=== PATIENT | male | born 1970 | race African-American/Black ===

== ENCOUNTER 2016-08-10 00:50 | Observation (INO) ==
[2016-08-10] MEDS ORDERED: Haloperidol Lactate 5 MG/ML VIAL IM ONE (01:06)
[2016-08-10] MEDS ORDERED: *HR* LORazepam 2 MG/ML VIAL IM ONE (01:06)
--- NOTE | 2016-08-10 01:15 | Emergency Department Note ---
Disposition Clinical Impression: Suicidal ideation Disposition: Still a Patient Condition: Fair Referrals: Unassigned,Provider [Non-Partnered Physician] - Forms: ED Satisfaction Letter Time of Disposition: 06:15 Psych HPI - General Chief Complaint: ED Psychiatric Symptoms Stated Complaint: psych eval Time Seen by Provider: 08/10/16 01:05 Source: patient, EMS Mode of arrival: EMS Limitations: altered mental status - History of Present Illness HPI Narrative: 46-year-old male is brought to the emergency department by EMS for complaint of a "mental breakdown". It is unknown at this time who called for EMS transport to the emergency department. Upon the patient's arrival, he is combative, and altered. Per EMS report, he admitted to OF suicidal ideation while in transport to the ED. At the time my exam, the patient remains somewhat combative, and not cooperative. I cannot elicit a definitive yes or no when asking the in the thoughts of suicidal or homicidal ideations question. The patient does complain of a severe headache. The patient denies any recent trauma or injury that could account for this. Pt complaint: altered mental status Onset (ago): unknown Associated Psychiatric Symptoms: racing thoughts Associated symptoms: Reports: headache Traumatic symptoms: denies traumatic injury Treatments prior to arrival: none - Related Data Home Medications Medication Instructions Recorded Confirmed Gabapentin [Neurontin] 07/21/16 Tramadol HCl 07/21/16 Previous Rx's Medication Instructions Recorded MethylPREDNISolone [Medrol] 4 mg PO TAPER #21 tablet 07/04/16 PredniSONE [Prednisone] 40 mg PO DAILY #10 tablet 07/21/16 Allergies Allergy/AdvReac Type Severity Reaction Status Date / Time ibuprofen AdvReac See Verified 05/23/16 19:57 Comments Limitations: ROS unobtainable due to patients medical condition (Review of systems limited by patient's altered mental status) Neurological: Reports: as per HPI, headache Psychiatric: Reports: as per HPI Past Medical History - Past Medical History Source: unable to obtain (Unable to obtain due to altered mental status) Medical history: Reports: other Surgical history: Reports: orthopedic, other Psychiatric history: Reports: anxiety, depression, panic disorder - Social History Smoking Status: Current every day smoker Smokeless Tobacco Status: No Alcohol use: Reports: none Drug use: Reports: marijuana Physical Exam - General Limitations: no limitations General appearance: alert - Head Head exam: atraumatic, normocephalic, normal inspection - Eye Eye exam: Present: normal appearance, PERRL, EOMI. Absent: nystagmus - ENT ENT exam: mucous membranes moist - Neck Neck exam: Present: normal inspection, full ROM, trachea midline - Chest Chest inspection: Present: normal inspection, symmetric chest wall rise - Respiratory Respiratory exam: Present: normal lung sounds bilaterally. Absent: respiratory distress, wheezes, stridor, accessory muscle use, prolonged expiratory phase - Cardiovascular Cardiovascular exam: Present: regular rate, normal rhythm, normal heart sounds - Abdominal Exam Abdominal exam: Present: soft, Non-Tender, normal bowel sounds. Absent: tenderness, distention, guarding, rebound, rigidity - Extremities Exam Extremities exam: Present: normal inspection, full ROM. Absent: tenderness, pedal edema - Neurological Exam Neurological exam: Present: alert, oriented X3 - Psychiatric Psychiatric exam: Present: agitated - Skin Skin exam: Present: warm, dry, intact, normal color. Absent: rash, cyanosis, diaphoresis, erythema, pallor, mottled Course - Reevaluation(s) Reevaluation #1: Patient is resting in bed comfortably at this time. Patient is cooperative. Patient is no longer combative at this point. Due to the patient's EtOH level, we will have to wait until 0700 for a repeat EtOH draw. Time: 03:10 Vital Signs Temperature 99.1 F 08/10/16 00:53 Pulse Rate 100 08/10/16 00:53 Respiratory Rate 18 08/10/16 00:53 Blood Pressure 139/78 08/10/16 00:53 O2 Sat by Pulse Oximetry 93 L 08/10/16 00:53 Temperature 99.1 F 08/10/16 00:53 Pulse Rate 99 08/10/16 05:26 Respiratory Rate 16 08/10/16 05:26 Blood Pressure 167/80 08/10/16 05:26 O2 Sat by Pulse Oximetry 91 L 08/10/16 05:26 Oxygen Delivery Oxygen Delivery Room Air Psych - Lab Data Result diagrams: 08/10/16 01:14 08/10/16 01:14 Lab Results 08/10/16 08/10/16 08/10/16 Range/Units 01:14 01:14 02:10 WBC 12.7 H (4.3-11.1) K/mcL RBC 4.75 (4.19-5.50) M/mcL Hgb 14.4 (12.9-16.9) g/dL Hct 43.1 (37.5-50.1) % MCV 90.7 (83.0-100.0) fL MCH 30.3 (28.0-33.3) pg MCHC 33.4 (31.6-35.5) g/dL RDW 13.2 (11.5-14.5) % Plt Count 230 (140-400) K/mcL MPV 9.6 (9.4-12.4) fL Immature Gran % 0.6 (0-4) % Seg Neutrophils % 75.8 % Lymphocytes % 13.5 % Monocytes % 9.6 % Eosinophils % 0.3 % Basophils % 0.2 % Neutrophils # 9.6 H (1.6-8.9) K/mcL Lymphocytes # 1.7 (0.6-4.6) K/mcL Monocytes # 1.2 (0.0-1.3) K/mcL Eosinophils # 0.0 (0.0-0.6) K/mcL Basophils # 0.0 (0.0-0.2) K/mcL Sodium 143 (136-145) mEq/L Potassium 3.9 (3.5-4.5) mEq/L Chloride 109 (98-109) mEq/L Carbon Dioxide 23 (19-29) mEq/L BUN 6 L (8-26) mg/dL Creatinine 0.95 (0.72-1.25) mg/dL Est GFR ( Amer) > 60 (> 60) Est GFR (Non-Af Amer) > 60 (> 60) BUN/Creatinine Ratio 6 (6-26) Glucose 98 (70-99) mg/dL Calculated Osmolality 294 (280-300) Calcium 8.9 (8.6-10.8) mg/dL TSH 0.227 L (0.350-4.840) mcIU/mL Urine Color Yellow (Yellow) Urine Clarity Clear (Clear) Urine pH 6.0 (5.0-8.0) pH Units Ur Specific [place] 1.015 (1.010-1.025) Urine Protein Negative (Neg-Trace) mg/dL Urine Glucose (UA) Normal (Normal) mg/dL Urine Ketones Negative (Negative) mg/dL Urine Blood Small H (Negative) Urine Nitrite Negative (Negative) Urine Bilirubin Negative (Negative) Urine Urobilinogen Normal (Normal) mg/dL Ur Leukocyte Esterase Negative (Negative) Urine Microscopic RBC 5-15 H (0-3) per hpf Urine Microscopic WBC 0-3 (0-3) per hpf Ur Squamous Epith Cells Many H (None-Few) per lpf Urine Bacteria None Seen (None-Few) per hpf Hyaline Casts None Seen (None-Few) per lpf Salicylates < 5.0 L (15-30) mg/dL Urine Opiates Screen (Vbokwq=775) ng/mL Acetaminophen < 1.0 L (10-30) mcg/mL Ur Barbiturates Screen (Oubtlw=255) ng/mL Ur Phencyclidine Scrn (Cutoff=25) ng/mL Ur Amphetamines Screen (Ucityl=0884) ng/mL U Benzodiazepines Scrn (Lckizm=737) ng/mL Urine Cocaine Screen (Cutoff= 300) ng/mL U Marijuana (THC) Screen (Cutoff = 50) ng/mL Ethyl Alcohol 213 H (0-10) mg/dL 08/10/16 Range/Units 02:10 WBC (4.3-11.1) K/mcL RBC (4.19-5.50) M/mcL Hgb (12.9-16.9) g/dL Hct (37.5-50.1) % MCV (83.0-100.0) fL MCH (28.0-33.3) pg MCHC (31.6-35.5) g/dL RDW (11.5-14.5) % Plt Count (140-400) K/mcL MPV (9.4-12.4) fL Immature Gran % (0-4) % Seg Neutrophils % % Lymphocytes % % Monocytes % % Eosinophils % % Basophils % % Neutrophils # (1.6-8.9) K/mcL Lymphocytes # (0.6-4.6) K/mcL Monocytes # (0.0-1.3) K/mcL Eosinophils # (0.0-0.6) K/mcL Basophils # (0.0-0.2) K/mcL Sodium (136-145) mEq/L Potassium (3.5-4.5) mEq/L Chloride (98-109) mEq/L Carbon Dioxide (19-29) mEq/L BUN (8-26) mg/dL Creatinine (0.72-1.25) mg/dL Est GFR ( Amer) (> 60) Est GFR (Non-Af Amer) (> 60) BUN/Creatinine Ratio (6-26) Glucose (70-99) mg/dL Calculated Osmolality (280-300) Calcium (8.6-10.8) mg/dL TSH (0.350-4.840) mcIU/mL Urine Color (Yellow) Urine Clarity (Clear) Urine pH (5.0-8.0) pH Units Ur Specific [place] (1.010-1.025) Urine Protein (Neg-Trace) mg/dL Urine Glucose (UA) (Normal) mg/dL Urine Ketones (Negative) mg/dL Urine Blood (Negative) Urine Nitrite (Negative) Urine Bilirubin (Negative) Urine Urobilinogen (Normal) mg/dL Ur Leukocyte Esterase (Negative) Urine Microscopic RBC (0-3) per hpf Urine Microscopic WBC (0-3) per hpf Ur Squamous Epith Cells (None-Few) per lpf Urine Bacteria (None-Few) per hpf Hyaline Casts (None-Few) per lpf Salicylates (15-30) mg/dL Urine Opiates Screen Negative (Ifbxpq=839) ng/mL Acetaminophen (10-30) mcg/mL Ur Barbiturates Screen Negative (Tkbamf=087) ng/mL Ur Phencyclidine Scrn Negative (Cutoff=25) ng/mL Ur Amphetamines Screen Negative (Tclwmr=4609) ng/mL U Benzodiazepines Scrn Positive H (Gvypgd=407) ng/mL Urine Cocaine Screen Positive H (Cutoff= 300) ng/mL U Marijuana (THC) Screen Positive H (Cutoff = 50) ng/mL Ethyl Alcohol (0-10) mg/dL Psychiatric Medical Clearance - Medical Clearance Checklist Medical History: No Social History Section defined Current Vitals: Last Vital Signs Temp 99.1 F 08/10/16 00:53 Pulse 99 08/10/16 05:26 Resp 16 08/10/16 05:26 BP 167/80 08/10/16 05:26 Pulse Ox 91 L 08/10/16 05:26 Psychiatric Lab Panel: Drug Levels and Toxicity 08/10/16 08/10/16 01:14 02:10 Urine Opiates Screen Negative Acetaminophen < 1.0 L Ur Barbiturates Screen Negative Ur Phencyclidine Scrn Negative Ur Amphetamines Screen Negative U Benzodiazepines Scrn Positive H Urine Cocaine Screen Positive H U Marijuana (THC) Screen Positive H Ethyl Alcohol 213 H Abnormal Labs: Abnormal lab results WBC 12.7 K/mcL (4.3-11.1) H 08/10/16 01:14 Neutrophils # 9.6 K/mcL (1.6-8.9) H 08/10/16 01:14 BUN 6 mg/dL (8-26) L 08/10/16 01:14 TSH 0.227 mcIU/mL (0.350-4.840) L 08/10/16 01:14 Urine Blood Small (Negative) H 08/10/16 02:10 Urine Microscopic RBC 5-15 per hpf (0-3) H 08/10/16 02:10 Ur Squamous Epith Cells Many per lpf (None-Few) H 08/10/16 02:10 Salicylates < 5.0 mg/dL (15-30) L 08/10/16 01:14 Acetaminophen < 1.0 mcg/mL (10-30) L 08/10/16 01:14 U Benzodiazepines Scrn Positive ng/mL (Smdggx=740) H 08/10/16 02:10 Urine Cocaine Screen Positive ng/mL (Cutoff= 300) H 08/10/16 02:10 U Marijuana (THC) Screen Positive ng/mL (Cutoff = 50) H 08/10/16 02:10 Ethyl Alcohol 213 mg/dL (0-10) H 08/10/16 01:14 Statement of Medical Clearance: I have evaluated the patient, reviewed diagnostic information, and certify that the patient's medical condition is sufficiently stable that transfer to the psychiatric unit does not pose a significant risk of deterioration. S.B.A.R. - S.B.A.R. Transition of Care: Case has been discussed with Jerica Schwartz PA-C. Care of this patient will be transferred to [place] d/t shift change. Situation: Demographics, MOA Background: Presenting Complaint, Relevant PMH, Meds, & Allergies Assessment: Vital Signs, Course and respsone to treatment, Exam Concerns, Patient/Family Expectation, Pertinant Lab Results, Outstanding Labs Recommendation: Barrier(s) to disposition, Recommendation based on pending studies, treatments, or consults S.B.A.R. Report Given to: KATHI Mcdonald Repor Time: 06:14
[2016-08-10 01:22] LABS: Basophils % 0.2 %; Eosinophils % 0.3 %; Hematocrit 43.1 % (37.5-50.1); Hemoglobin 14.4 g/dL (12.9-16.9); Immature Granulocytes % 0.6 % (0-4); Lymphocytes # 1.7 K/mcL (0.6-4.6); Lymphocytes % 13.5 %; Mean Corpuscular HGB Conc 33.4 g/dL (31.6-35.5); Mean Corpuscular Hemoglobin 30.3 pg (28.0-33.3); Mean Corpuscular Volume 90.7 fL (83.0-100.0); Mean Platelet Volume 9.6 fL (9.4-12.4); Monocytes # 1.2 K/mcL (0.0-1.3); Monocytes % 9.6 %; Neutrophils # 9.6 K/mcL (1.6-8.9); Platelet Count 230 K/mcL (140-400); Red Blood Count 4.75 M/mcL (4.19-5.50); Red Cell Distribution Width 13.2 % (11.5-14.5); Segmented Neutrophils % 75.8 %
[2016-08-10 01:50] LABS: Acetaminophen < 1.0 mcg/mL (10-30); BUN/Creatinine Ratio 6 (6-26); Blood Urea Nitrogen 6 mg/dL (8-26); Calcium 8.9 mg/dL (8.6-10.8); Carbon Dioxide 23 mEq/L (19-29); Chloride 109 mEq/L (98-109); Ethanol 213 mg/dL (0-10); Glucose 98 mg/dL (70-99); Osmolality,Calculated 294 (280-300); Potassium 3.9 mEq/L (3.5-4.5); Salicylate < 5.0 mg/dL (15-30); Sodium 143 mEq/L (136-145); eGFR For African Americans > 60 (> 60); eGFR For Non-African Americans > 60 (> 60)
[2016-08-10 02:09] LABS: Thyroid Stimulating Hormone 0.227 mcIU/mL (0.350-4.840)
[2016-08-10 03:02] LABS: Bilirubin,Urine Negative (Negative); Blood,Urine Small (Negative); Clarity,Urine Clear (Clear); Color,Urine Yellow (Yellow); Glucose,Urine (UA) Normal (Normal); Ketones,Urine Negative (Negative); Leukocyte Esterase,Urine Negative (Negative); Nitrite,Urine Negative (Negative); Protein,Urine Negative (Neg-Trace); Specific Gravity,Urine 1.015 (1.010-1.025); Urobilinogen,Urine Normal (Normal)
[2016-08-10 03:05] LABS: Bacteria,Urine None Seen per hpf (None-Few); Hyaline Casts,Urine None Seen per lpf (None-Few); Squamous Epithelial Cell,Urine Many per lpf (None-Few); WBC,Urine 0-3 per hpf (0-3)
[2016-08-10 03:08] LABS: Amphetamine Screen,Urine Negative ng/mL (Cutoff=1000); Barbiturate Screen,Urine Negative ng/mL (Cutoff=200); Benzodiazepines Screen,Urine Positive ng/mL (Cutoff=200); Cannabinoid Screen,Urine Positive ng/mL (Cutoff = 50); Cocaine Screen,Urine Positive ng/mL (Cutoff= 300); Opiate Screen,Urine Negative ng/mL (Cutoff=300); Phencyclidine Screen,Urine Negative ng/mL (Cutoff=25)
--- NOTE | 2016-08-10 09:03 | Emergency Department Note ---
Disposition Clinical Impression: Suicidal ideation, Alcohol abuse Disposition: Admitted As Inpatient Condition: Fair Psych HPI - General Chief Complaint: ED Psychiatric Symptoms Stated Complaint: psych eval Time Seen by Provider: 08/10/16 01:05 Source: patient, EMS Mode of arrival: EMS - History of Present Illness Associated symptoms: Reports: headache - Related Data Home Medications Medication Instructions Recorded Confirmed Gabapentin [Neurontin] 07/21/16 Tramadol HCl 07/21/16 Previous Rx's Medication Instructions Recorded MethylPREDNISolone [Medrol] 4 mg PO TAPER #21 tablet 07/04/16 PredniSONE [Prednisone] 40 mg PO DAILY #10 tablet 07/21/16 Allergies Allergy/AdvReac Type Severity Reaction Status Date / Time ibuprofen AdvReac See Verified 05/23/16 19:57 Comments Neurological: Reports: as per HPI, headache Psychiatric: Reports: as per HPI Past Medical History - Past Medical History Medical history: Reports: other Surgical history: Reports: orthopedic, other Psychiatric history: Reports: anxiety, depression, panic disorder - Social History Smoking Status: Current every day smoker Smokeless Tobacco Status: No Alcohol use: Reports: none Drug use: Reports: marijuana Physical Exam - General Limitations: no limitations General appearance: alert Course Course Narrative: Assumed care of patient from Colton Montalvo CNP at shift change. Patient is sleeping. Repeat ETOH ordered. ETOH 88. Patient still sleepy. Wakes up to voice, but is groggy - most likely from the medications that were given to him last night. Meal tray ordered. Will re-assess and feed when able. Patient A&Ox3, no ocmplaints. Vitals improved. Sats97% on room air. 1A aware of need for consult. 1A ryley's admission to psych but concerned that pt will go through withdrawal. Requesting that patient be admitted to hospitalist for 24hr obs and then go to 1A for psych eval. Hospitalist paged. Case discussed. She will admit the patient. Vital Signs Temperature 99.1 F 08/10/16 00:53 Pulse Rate 100 08/10/16 00:53 Respiratory Rate 18 08/10/16 00:53 Blood Pressure 139/78 08/10/16 00:53 O2 Sat by Pulse Oximetry 93 L 08/10/16 00:53 Temperature 99.1 F 08/10/16 00:53 Pulse Rate 99 08/10/16 05:26 Respiratory Rate 16 08/10/16 05:26 Blood Pressure 167/80 08/10/16 05:26 O2 Sat by Pulse Oximetry 91 L 08/10/16 05:26 Oxygen Delivery Oxygen Delivery Room Air Psych - Medical Records Medical records reviewed: Yes I reviewed the patient's medical records. - Lab Data Lab results reviewed: Yes I reviewed the patient's lab results. Lab results narrative: Laboratory Last Values WBC 12.7 K/mcL (4.3-11.1) H 08/10/16 01:14 RBC 4.75 M/mcL (4.19-5.50) 08/10/16 01:14 Hgb 14.4 g/dL (12.9-16.9) 08/10/16 01:14 Hct 43.1 % (37.5-50.1) 08/10/16 01:14 MCV 90.7 fL (83.0-100.0) 08/10/16 01:14 MCH 30.3 pg (28.0-33.3) 08/10/16 01:14 MCHC 33.4 g/dL (31.6-35.5) 08/10/16 01:14 RDW 13.2 % (11.5-14.5) 08/10/16 01:14 Plt Count 230 K/mcL (140-400) 08/10/16 01:14 MPV 9.6 fL (9.4-12.4) 08/10/16 01:14 Immature Gran % 0.6 % (0-4) 08/10/16 01:14 Seg Neutrophils % 75.8 % 08/10/16 01:14 Lymphocytes % 13.5 % 08/10/16 01:14 Monocytes % 9.6 % 08/10/16 01:14 Eosinophils % 0.3 % 08/10/16 01:14 Basophils % 0.2 % 08/10/16 01:14 Neutrophils # 9.6 K/mcL (1.6-8.9) H 08/10/16 01:14 Lymphocytes # 1.7 K/mcL (0.6-4.6) 08/10/16 01:14 Monocytes # 1.2 K/mcL (0.0-1.3) 08/10/16 01:14 Eosinophils # 0.0 K/mcL (0.0-0.6) 08/10/16 01:14 Basophils # 0.0 K/mcL (0.0-0.2) 08/10/16 01:14 Sodium 143 mEq/L (136-145) 08/10/16 01:14 Potassium 3.9 mEq/L (3.5-4.5) 08/10/16 01:14 Chloride 109 mEq/L (98-109) 08/10/16 01:14 Carbon Dioxide 23 mEq/L (19-29) 08/10/16 01:14 BUN 6 mg/dL (8-26) L 08/10/16 01:14 Creatinine 0.95 mg/dL (0.72-1.25) 08/10/16 01:14 Est GFR ( Amer) > 60 (> 60) 08/10/16 01:14 Est GFR (Non-Af Amer) > 60 (> 60) 08/10/16 01:14 BUN/Creatinine Ratio 6 (6-26) 08/10/16 01:14 Glucose 98 mg/dL (70-99) 08/10/16 01:14 Calculated Osmolality 294 (280-300) 08/10/16 01:14 Calcium 8.9 mg/dL (8.6-10.8) 08/10/16 01:14 TSH 0.227 mcIU/mL (0.350-4.840) L 08/10/16 01:14 Urine Color Yellow (Yellow) 08/10/16 02:10 Urine Clarity Clear (Clear) 08/10/16 02:10 Urine pH 6.0 pH Units (5.0-8.0) 08/10/16 02:10 Ur Specific [place] 1.015 (1.010-1.025) 08/10/16 02:10 Urine Protein Negative mg/dL (Neg-Trace) 08/10/16 02:10 Urine Glucose (UA) Normal mg/dL (Normal) 08/10/16 02:10 Urine Ketones Negative mg/dL (Negative) 08/10/16 02:10 Urine Blood Small (Negative) H 08/10/16 02:10 Urine Nitrite Negative (Negative) 08/10/16 02:10 Urine Bilirubin Negative (Negative) 08/10/16 02:10 Urine Urobilinogen Normal mg/dL (Normal) 08/10/16 02:10 Ur Leukocyte Esterase Negative (Negative) 08/10/16 02:10 Urine Microscopic RBC 5-15 per hpf (0-3) H 08/10/16 02:10 Urine Microscopic WBC 0-3 per hpf (0-3) 08/10/16 02:10 Ur Squamous Epith Cells Many per lpf (None-Few) H 08/10/16 02:10 Urine Bacteria None Seen per hpf (None-Few) 08/10/16 02:10 Hyaline Casts None Seen per lpf (None-Few) 08/10/16 02:10 Salicylates < 5.0 mg/dL (15-30) L 08/10/16 01:14 Urine Opiates Screen Negative ng/mL (Aonquh=007) 08/10/16 02:10 Acetaminophen < 1.0 mcg/mL (10-30) L 08/10/16 01:14 Ur Barbiturates Screen Negative ng/mL (Hgxsoy=975) 08/10/16 02:10 Ur Phencyclidine Scrn Negative ng/mL (Cutoff=25) 08/10/16 02:10 Ur Amphetamines Screen Negative ng/mL (Ukimkx=8043) 08/10/16 02:10 U Benzodiazepines Scrn Positive ng/mL (Thcufd=644) H 08/10/16 02:10 Urine Cocaine Screen Positive ng/mL (Cutoff= 300) H 08/10/16 02:10 U Marijuana (THC) Screen Positive ng/mL (Cutoff = 50) H 08/10/16 02:10 Ethyl Alcohol 81 mg/dL (0-10) H 08/10/16 07:35 Result diagrams: 08/10/16 01:14 08/10/16 01:14 Lab Results 08/10/16 08/10/16 08/10/16 Range/Units 01:14 01:14 02:10 WBC 12.7 H (4.3-11.1) K/mcL RBC 4.75 (4.19-5.50) M/mcL Hgb 14.4 (12.9-16.9) g/dL Hct 43.1 (37.5-50.1) % MCV 90.7 (83.0-100.0) fL MCH 30.3 (28.0-33.3) pg MCHC 33.4 (31.6-35.5) g/dL RDW 13.2 (11.5-14.5) % Plt Count 230 (140-400) K/mcL MPV 9.6 (9.4-12.4) fL Immature Gran % 0.6 (0-4) % Seg Neutrophils % 75.8 % Lymphocytes % 13.5 % Monocytes % 9.6 % Eosinophils % 0.3 % Basophils % 0.2 % Neutrophils # 9.6 H (1.6-8.9) K/mcL Lymphocytes # 1.7 (0.6-4.6) K/mcL Monocytes # 1.2 (0.0-1.3) K/mcL Eosinophils # 0.0 (0.0-0.6) K/mcL Basophils # 0.0 (0.0-0.2) K/mcL Sodium 143 (136-145) mEq/L Potassium 3.9 (3.5-4.5) mEq/L Chloride 109 (98-109) mEq/L Carbon Dioxide 23 (19-29) mEq/L BUN 6 L (8-26) mg/dL Creatinine 0.95 (0.72-1.25) mg/dL Est GFR ( Amer) > 60 (> 60) Est GFR (Non-Af Amer) > 60 (> 60) BUN/Creatinine Ratio 6 (6-26) Glucose 98 (70-99) mg/dL Calculated Osmolality 294 (280-300) Calcium 8.9 (8.6-10.8) mg/dL TSH 0.227 L (0.350-4.840) mcIU/mL Urine Color Yellow (Yellow) Urine Clarity Clear (Clear) Urine pH 6.0 (5.0-8.0) pH Units Ur Specific [place] 1.015 (1.010-1.025) Urine Protein Negative (Neg-Trace) mg/dL Urine Glucose (UA) Normal (Normal) mg/dL Urine Ketones Negative (Negative) mg/dL Urine Blood Small H (Negative) Urine Nitrite Negative (Negative) Urine Bilirubin Negative (Negative) Urine Urobilinogen Normal (Normal) mg/dL Ur Leukocyte Esterase Negative (Negative) Urine Microscopic RBC 5-15 H (0-3) per hpf Urine Microscopic WBC 0-3 (0-3) per hpf Ur Squamous Epith Cells Many H (None-Few) per lpf Urine Bacteria None Seen (None-Few) per hpf Hyaline Casts None Seen (None-Few) per lpf Salicylates < 5.0 L (15-30) mg/dL Urine Opiates Screen (Htzimk=655) ng/mL Acetaminophen < 1.0 L (10-30) mcg/mL Ur Barbiturates Screen (Gxsxjj=647) ng/mL Ur Phencyclidine Scrn (Cutoff=25) ng/mL Ur Amphetamines Screen (Duughs=3523) ng/mL U Benzodiazepines Scrn (Dxqfwq=418) ng/mL Urine Cocaine Screen (Cutoff= 300) ng/mL U Marijuana (THC) Screen (Cutoff = 50) ng/mL Ethyl Alcohol 213 H (0-10) mg/dL 08/10/16 08/10/16 Range/Units 02:10 07:35 WBC (4.3-11.1) K/mcL RBC (4.19-5.50) M/mcL Hgb (12.9-16.9) g/dL Hct (37.5-50.1) % MCV (83.0-100.0) fL MCH (28.0-33.3) pg MCHC (31.6-35.5) g/dL RDW (11.5-14.5) % Plt Count (140-400) K/mcL MPV (9.4-12.4) fL Immature Gran % (0-4) % Seg Neutrophils % % Lymphocytes % % Monocytes % % Eosinophils % % Basophils % % Neutrophils # (1.6-8.9) K/mcL Lymphocytes # (0.6-4.6) K/mcL Monocytes # (0.0-1.3) K/mcL Eosinophils # (0.0-0.6) K/mcL Basophils # (0.0-0.2) K/mcL Sodium (136-145) mEq/L Potassium (3.5-4.5) mEq/L Chloride (98-109) mEq/L Carbon Dioxide (19-29) mEq/L BUN (8-26) mg/dL Creatinine (0.72-1.25) mg/dL Est GFR ( Amer) (> 60) Est GFR (Non-Af Amer) (> 60) BUN/Creatinine Ratio (6-26) Glucose (70-99) mg/dL Calculated Osmolality (280-300) Calcium (8.6-10.8) mg/dL TSH (0.350-4.840) mcIU/mL Urine Color (Yellow) Urine Clarity (Clear) Urine pH (5.0-8.0) pH Units Ur Specific [place] (1.010-1.025) Urine Protein (Neg-Trace) mg/dL Urine Glucose (UA) (Normal) mg/dL Urine Ketones (Negative) mg/dL Urine Blood (Negative) Urine Nitrite (Negative) Urine Bilirubin (Negative) Urine Urobilinogen (Normal) mg/dL Ur Leukocyte Esterase (Negative) Urine Microscopic RBC (0-3) per hpf Urine Microscopic WBC (0-3) per hpf Ur Squamous Epith Cells (None-Few) per lpf Urine Bacteria (None-Few) per hpf Hyaline Casts (None-Few) per lpf Salicylates (15-30) mg/dL Urine Opiates Screen Negative (Pkulsb=033) ng/mL Acetaminophen (10-30) mcg/mL Ur Barbiturates Screen Negative (Olvgzb=543) ng/mL Ur Phencyclidine Scrn Negative (Cutoff=25) ng/mL Ur Amphetamines Screen Negative (Cdxpim=5383) ng/mL U Benzodiazepines Scrn Positive H (Safsij=824) ng/mL Urine Cocaine Screen Positive H (Cutoff= 300) ng/mL U Marijuana (THC) Screen Positive H (Cutoff = 50) ng/mL Ethyl Alcohol 81 H (0-10) mg/dL Psychiatric Medical Clearance - Medical Clearance Checklist Medical History: No Social History Section defined Current Vitals: Last Vital Signs Temp 99.1 F 08/10/16 00:53 Pulse 99 08/10/16 05:26 Resp 16 08/10/16 05:26 BP 167/80 08/10/16 05:26 Pulse Ox 91 L 08/10/16 05:26 Psychiatric Lab Panel: Drug Levels and Toxicity 08/10/16 08/10/16 08/10/16 01:14 02:10 07:35 Urine Opiates Screen Negative Acetaminophen < 1.0 L Ur Barbiturates Screen Negative Ur Phencyclidine Scrn Negative Ur Amphetamines Screen Negative U Benzodiazepines Scrn Positive H Urine Cocaine Screen Positive H U Marijuana (THC) Screen Positive H Ethyl Alcohol 213 H 81 H Abnormal Labs: Abnormal lab results WBC 12.7 K/mcL (4.3-11.1) H 08/10/16 01:14 Neutrophils # 9.6 K/mcL (1.6-8.9) H 08/10/16 01:14 BUN 6 mg/dL (8-26) L 08/10/16 01:14 TSH 0.227 mcIU/mL (0.350-4.840) L 08/10/16 01:14 Urine Blood Small (Negative) H 08/10/16 02:10 Urine Microscopic RBC 5-15 per hpf (0-3) H 08/10/16 02:10 Ur Squamous Epith Cells Many per lpf (None-Few) H 08/10/16 02:10 Salicylates < 5.0 mg/dL (15-30) L 08/10/16 01:14 Acetaminophen < 1.0 mcg/mL (10-30) L 08/10/16 01:14 U Benzodiazepines Scrn Positive ng/mL (Mhbvjo=807) H 08/10/16 02:10 Urine Cocaine Screen Positive ng/mL (Cutoff= 300) H 08/10/16 02:10 U Marijuana (THC) Screen Positive ng/mL (Cutoff = 50) H 08/10/16 02:10 Ethyl Alcohol 81 mg/dL (0-10) H 08/10/16 07:35 Statement of Medical Clearance: I have evaluated the patient, reviewed diagnostic information, and certify that the patient's medical condition is sufficiently stable that transfer to the psychiatric unit does not pose a significant risk of deterioration.
[2016-08-10] MEDS ORDERED: Naloxone 0.4 MG/ML INJ IVP PRN (16:17)
[2016-08-10] MEDS ORDERED: Acetaminophen 325 MG TABLET PO PRN (16:17)
[2016-08-10] MEDS ORDERED: Ondansetron 4 MG/2 ML VIAL IVP PRN (16:17)
--- NOTE | 2016-08-10 16:28 | Internal Med History&Physical ---
Date of Encounter: 08/10/16 Time of Encounter: 16:28 Assessment and Plan (1) Acute alcohol intoxication Current visit: Yes Status: Acute Currently sober with improvement in serum alcohol level. Patient is at high risk for alcohol withdrawal given his alcohol history. Continue IV hydration along with when necessary antiemetics and PPI. CIWA protocol with when necessary benzodiazepines. Fall precautions. Monitor vitals closely. Monitor electrolytes closely and replete as needed. Telemetry monitoring. Thiamine and folate supplements. director of radio services consult. Qualifiers: Complication of substance-induced condition: uncomplicated Qualified Code(s ): F10.120 - Alcohol abuse with intoxication, uncomplicated (2) Alcohol abuse Current visit: Yes Status: Chronic (3) Suicidal ideation Current visit: Yes Status: Acute Evaluated by psychiatric, pending admission to inpatient psychiatric when medically stable. Continue one-on-one sitter for patient safety. Continue benzodiazepines and supportive care as above. Internal Medicine - H&P: HPI Chief complaint: Suicidal ideation Admitted From: Emergency Dept Plans for Post Hospital Care: Transfer Psych Facility History of present illness: Mr. Murphy is a 46 year old male with history of anxiety and chronic alcohol abuse presents to the emergency room with complaints of feelings of hurting himself. Patient was evaluated by psychiatry in the emergency room with plan to transfer to inpatient psychiatry unit when patient is medically stable. Patient is currently on one-on-one sitter for safety. He is not willing to provide a detailed history at this time. He reports having chronic back pain that is getting worse. He reports having feelings of hurting himself but is not clear about the reason. No chest pain, nausea, vomiting, abdominal pain, shortness of breath or palpitations. He does not hear voices or seeing things in the room. He reports drinking beer every day and is not forthcoming regarding the amount and his last drink has been last night. He was noted to be intoxicated in the emergency room and his serum alcohol levels improved with IV hydration after which he was assessed by psychiatry. Past Med Surg Social Fam HX - Past Medical History Medical history: other (Chronic alcohol abuse) Psychiatric history: anxiety, depression, panic disorder - Past Surgical History Surgical History: orthopedic, other - Social History Smoking Status: Current every day smoker Smokeless Tobacco Status: No Alcohol use: heavy, recent Drug use: marijuana Occupational status: unemployed Current living situation: Home Activity Level: Independent ambulation Recent Out of Country Travel Within the Last 8 Weeks: No Exposure or Possible Exposure to Illness During Travel: No - Family History Father Living Status: Internal Medicine - H&P: Meds Gabapentin [Neurontin] 300 mg PO DAILY 07/21/16 [History] Folic Acid [Folic Acid] 1 mg PO DAILY 08/10/16 [History] OxyCODONE/APAP 5/325 [Percocet 5/325 MG] 1 tab PO Q6HR PRN 08/10/16 [History] Thiamine (B-1) [Vitamin B-1] 100 mg PO DAILY 08/10/16 [History] Diazepam [Valium] 5 mg PO BID 08/11/16 [History] Allergies ibuprofen Adverse Reaction (Verified 08/10/16 12:10) Gastrointestinal Upset All Systems PM: A 10-system review of systems was performed and is negative for pertinent findings except as documented above in the HPI. - Constitutional Constitutional: no chills, no fever(s), no night sweats - EENT Eyes: no change in vision, no discharge, no pain, no photophobia Ears: no ear discharge, no ear pain, no tinnitus Nose, mouth and throat: no dysphagia, no nasal discharge, no neck pain, no sore throat - Cardiovascular Cardiovascular ROS IM: no chest pain, no diaphoresis, no dyspnea, no lightheadedness, no palpitations, no syncope - Respiratory Respiratory: no cough, no dyspnea, no wheezing, no excessive phlegm production - Gastrointestinal Gastrointestinal: no abdominal pain, no diarrhea, no hematemesis, no hematochezia, no melena, no nausea, no vomiting - Musculoskeletal Musculoskeletal ROS IM: back pain - Integumentary Integumentary IM: no rash, no unusual bruising - Neurological Neurological ROS: no confusion, no convulsions, no focal weakness, no numbness, no tingling, no tremor(s) - Psychiatric Psychiatric: anxiety, depression, suicidal ideation - Hematologic/Lymphatic Hematologic/Lymphatic: no easy bruising - Constitutional Vitals: Temp Pulse Resp BP Pulse Ox 100.0 F H 92 17 131/77 96 08/10/16 16:17 08/10/16 16:17 08/10/16 16:17 08/10/16 16:17 08/10/16 16:17 General appearance: Present: cooperative (Does not answer most of the questions and is not completely cooperative with physical exam), A&O X 2 - Head Head exam: Present: atraumatic, normocephalic - Neck Neck exam general surgery: Present: supple, trachea midline. Absent: lymphadenopathy - Respiratory Respiratory exam: Present: CTAB. Absent: accessory muscle use, rales, rhonchi, wheezes - Cardiovascular Cardiovascular exam: Present: RRR, +S1, +S2. Absent: diastolic murmur, gallop, rubs, systolic murmur - GI/Abdominal GI/Abdominal exam: Present: normal bowel sounds, soft, no peritoneal signs. Absent: distended, tenderness - Extremities Exam Extremities exam: Present: full ROM, warm, radial pulses palpable and symetrical. Absent: calf tenderness, cyanotic, pedal edema - Neurological Exam Neurological exam: Present: oriented X3, no focal deficits. Absent: pronater drift, facial droop, speech deficit - Skin Skin exam: Present: dry, intact Internal Med - H&P Results - Labs CBC & Chem 7: 08/11/16 04:31 08/11/16 04:31
[2016-08-10] MEDS: 0.9 % Sodium Chloride 1,000 ML IVC SCH (17:59)
[2016-08-10] MEDS: *HR* OxyCODONE/APAP 5/325 TABLET PO PRN (17:59)
[2016-08-10] MEDS ORDERED: Water for inj. (sterile) 10 ML IV ONE (20:51)
[2016-08-10] MEDS: *HR* LORazepam 2 MG/ML VIAL IVP PRN (20:52)
[2016-08-11] MEDS ORDERED: Water for inj. (sterile) 10 ML IV ONE ×2 (03:11→21:03)
[2016-08-11] MEDS: *HR* LORazepam 2 MG/ML VIAL IVP PRN ×4 (03:14→21:04)
[2016-08-11] MEDS: *HR* OxyCODONE/APAP 5/325 TABLET PO PRN ×3 (04:42→22:53)
[2016-08-11 05:05] LABS: Basophils # 0.1 K/mcL (0.0-0.2); Basophils % 0.4 %; Eosinophils # 0.1 K/mcL (0.0-0.6); Eosinophils % 0.8 %; Hemoglobin 14.3 g/dL (12.9-16.9); Immature Granulocytes % 0.4 % (0-4); Lymphocytes # 1.1 K/mcL (0.6-4.6); Lymphocytes % 8.2 %; Mean Corpuscular Hemoglobin 30.6 pg (28.0-33.3); Mean Corpuscular Volume 89.9 fL (83.0-100.0); Mean Platelet Volume 10.2 fL (9.4-12.4); Monocytes # 1.2 K/mcL (0.0-1.3); Monocytes % 9.1 %; Neutrophils # 10.8 K/mcL (1.6-8.9); Platelet Count 210 K/mcL (140-400); Red Blood Count 4.67 M/mcL (4.19-5.50); Red Cell Distribution Width 13.2 % (11.5-14.5); Segmented Neutrophils % 81.1 %
[2016-08-11 05:12] LABS: BUN/Creatinine Ratio 13 (6-26); Blood Urea Nitrogen 13 mg/dL (8-26); Calcium 8.8 mg/dL (8.6-10.8); Carbon Dioxide 22 mEq/L (19-29); Chloride 105 mEq/L (98-109); Glucose 86 mg/dL (70-99); Magnesium 2.2 mg/dL (1.6-2.6); Osmolality,Calculated 283 (280-300); Phosphorous 2.7 mg/dL (2.3-4.7); Potassium 3.6 mEq/L (3.5-4.5); Sodium 137 mEq/L (136-145); eGFR For African Americans > 60 (> 60); eGFR For Non-African Americans > 60 (> 60)
[2016-08-11] MEDS ORDERED: *HR* LORazepam 2 MG/ML VIAL IVP PRN ×3 (05:25)
[2016-08-11] MEDS ORDERED: *HR* Promethazine 25 MG/ML VIAL IVP PRN (05:25)
[2016-08-11] MEDS: Vitamin B Complex/Vit C/Vit E 1 EACH TABLET PO SCH (07:30)
[2016-08-11] MEDS: 0.9 % Sodium Chloride 1,000 ML IVC SCH ×2 (07:30→21:04)
[2016-08-11] MEDS: Thiamine (B-1) 100 MG TABLET PO SCH (07:30)
[2016-08-11] MEDS: Folic Acid 1 MG TABLET PO SCH (07:30)
[2016-08-11] MEDS: Gabapentin 300 MG CAPSULE PO SCH (07:30)
--- NOTE | 2016-08-11 13:56 | Internal Med Progress Note ---
Date of Encounter: 08/11/16 Time of Encounter: 13:55 - Assessment and plan (1) Alcohol withdrawal syndrome Current Visit: Yes Status: Acute Assessment and plan: continue CIWA protocol and assessment; PRN IV Ativan; IV hydration; monitor electrolytes- WNL; continue PPI; Thiamine and folate supplements; Qualifiers: Complication of substance-induced condition: with unspecified complication Qualified Code(s): F10.239 - Alcohol dependence with withdrawal, unspecified (2) Acute alcohol intoxication Current Visit: Yes Status: Resolved Qualifiers: Complication of substance-induced condition: uncomplicated Qualified Code(s ): F10.120 - Alcohol abuse with intoxication, uncomplicated (3) Anxiety Current Visit: Yes Status: Chronic (4) Suicidal ideation Current Visit: Yes Status: Resolved Assessment and plan: has been on 1:1 watch, Psychiatry reevaluation done, does not need inpatient Psych admission at this time, per floor RN; cannot find Psychiatry notes on Mus[facility]; no active suicidal ideation; (5) Alcohol abuse Current Visit: Yes Status: Chronic - Subjective Interval history: Calm and sleepy; able to answer questions; has hand tremors; does not report auditory or visual hallucinations; no nausea, vomiting, abdominal pain, chest pain, anxiety, dyspnea, but has poor appetite; - Constitutional Vitals: Temp Pulse Resp BP Pulse Ox 99.0 F 94 17 151/91 95 08/11/16 11:00 08/11/16 11:00 08/11/16 11:00 08/11/16 11:00 08/11/16 11:00 General appearance: Present: A&O X 2 - Respiratory Respiratory exam: Present: CTAB. Absent: accessory muscle use, rales, rhonchi, wheezes - Cardiovascular Cardiovascular exam: Present: RRR, +S1, +S2. Absent: diastolic murmur, gallop, rubs, systolic murmur - GI/Abdominal GI/Abdominal exam: Present: normal bowel sounds, soft, no peritoneal signs. Absent: distended, tenderness - Extremities Exam Extremities exam: Present: full ROM, warm, radial pulses palpable and symetrical. Absent: calf tenderness, cyanotic, pedal edema Internal Medicine: Result - Labs CBC & Chem 7: 08/11/16 04:31 08/11/16 04:31 Labs: Short CBC 08/11/16 Range/Units 04:31 WBC 13.4 H (4.3-11.1) K/mcL Hgb 14.3 (12.9-16.9) g/dL Hct 42.0 (37.5-50.1) % Plt Count 210 (140-400) K/mcL Neutrophils # 10.8 H (1.6-8.9) K/mcL BMP 08/11/16 04:31 Sodium 137 Potassium 3.6 Chloride 105 Carbon Dioxide 22 BUN 13 Creatinine 1.02 Glucose 86 Calcium 8.8 Consult Discharge Plan - Plan Referrals: NO,PCP [Primary Care Provider] -
[2016-08-11] MEDS: diazePAM 5 MG TABLET PO SCH (21:04)
[2016-08-12 04:45] LABS: Basophils # 0.1 K/mcL (0.0-0.2); Basophils % 0.5 %; Eosinophils # 0.2 K/mcL (0.0-0.6); Hematocrit 38.3 % (37.5-50.1); Hemoglobin 13.3 g/dL (12.9-16.9); Immature Granulocytes % 0.2 % (0-4); Lymphocytes % 19.5 %; Mean Corpuscular HGB Conc 34.7 g/dL (31.6-35.5); Mean Corpuscular Volume 89.3 fL (83.0-100.0); Mean Platelet Volume 10.1 fL (9.4-12.4); Monocytes # 1.1 K/mcL (0.0-1.3); Monocytes % 11.3 %; Neutrophils # 6.6 K/mcL (1.6-8.9); Platelet Count 186 K/mcL (140-400); Red Blood Count 4.29 M/mcL (4.19-5.50); Red Cell Distribution Width 12.9 % (11.5-14.5); Segmented Neutrophils % 66.5 %
[2016-08-12] MEDS: *HR* OxyCODONE/APAP 5/325 TABLET PO PRN ×2 (05:00→12:23)
[2016-08-12 05:01] LABS: BUN/Creatinine Ratio 12 (6-26); Blood Urea Nitrogen 10 mg/dL (8-26); Calcium 8.7 mg/dL (8.6-10.8); Carbon Dioxide 22 mEq/L (19-29); Chloride 105 mEq/L (98-109); Glucose 95 mg/dL (70-99); Magnesium 1.9 mg/dL (1.6-2.6); Osmolality,Calculated 281 (280-300); Phosphorous 2.7 mg/dL (2.3-4.7); Potassium 3.7 mEq/L (3.5-4.5); Sodium 136 mEq/L (136-145); eGFR For African Americans > 60 (> 60); eGFR For Non-African Americans > 60 (> 60)
[2016-08-12] MEDS: *HR* LORazepam 2 MG/ML VIAL IVP PRN (06:08)
[2016-08-12] MEDS: Folic Acid 1 MG TABLET PO SCH (08:01)
[2016-08-12] MEDS: Gabapentin 300 MG CAPSULE PO SCH (08:01)
[2016-08-12] MEDS: diazePAM 5 MG TABLET PO SCH (08:01)
[2016-08-12] MEDS: Thiamine (B-1) 100 MG TABLET PO SCH (08:01)
[2016-08-12] MEDS: Vitamin B Complex/Vit C/Vit E 1 EACH TABLET PO SCH (08:01)
--- NOTE | 2016-08-12 12:45 | Consult Note ---
Date of Encounter: 08/12/16 Time of Encounter: 13:00 Assessment & Recommendation (1) Polysubstance dependence including opioid drug with daily use Current visit: Yes Status: Chronic History of Present Illness Requesting Physician: Merary Yadav MD Reason for consult: suicidal ideation History of present illness: Mr. Murphy is a 46 year old male admitted as a medical floor for evaluation of chronic pain. Psychiatric consultation was requested to evaluate suicidal ideation. Patient states that he has chronic back pain for many years and has been treated with Percocet and Valium. Apparently he has been outs of Valium for a few days and he expressed frustration and anger and threaten threatened to hang himself if his Valium was not given. Patient told me he has never been hospitalized in a psychiatric hospital or 3 digits for depression. He states his mother suffered from mental illness. He described his stress is due to his chronic back pain and inability to work, also he is having financial problems and family conflicts. He admits to using alcohol and smoking cigarettes and consuming caffeine. His tox screen was positive for cocaine marijuana opiates and alcohol. 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 CC: Merary Yadav MD Past Med Surg Social Fam HX - Past Medical History Medical history: other (Chronic alcohol abuse) - Past Psychiatric History Psychiatric history: Reports: no psych history - Past Surgical History Surgical History: orthopedic, other - Social History Smoking Status: Current every day smoker Smokeless Tobacco Status: No Alcohol use: heavy, recent Drug use: marijuana - Family History Father Living Status: Medications & Allergies Gabapentin [Neurontin] 300 mg PO DAILY 07/21/16 [History] Folic Acid [Folic Acid] 1 mg PO DAILY 08/10/16 [History] OxyCODONE/APAP 5/325 [Percocet 5/325 MG] 1 tab PO Q6HR PRN 08/10/16 [History] Thiamine (B-1) [Vitamin B-1] 100 mg PO DAILY 08/10/16 [History] Diazepam [Valium] 5 mg PO BID 08/11/16 [History] Allergies ibuprofen Adverse Reaction (Verified 08/10/16 12:10) Gastrointestinal Upset Review of Systems Psychiatric: Reports: anxiety, suicidal ideation, irritability, mood swings, panic attacks Mental Status Exam Patient orientation: Yes Person, Yes Time, Yes Place, Yes Circumstance Level of alertness: Alert Patient appearance: Appropriate, Well-nourished Behavior: cooperative, anxious, guarded Psychomotor activity: Normal Eye contact: Maintains Eye Contact Mood description: Angry, Anxious, Irritable Affect description: congruent with mood, anxious Speech pattern: Normal rate, Clear, Limited Speech volume: Soft/Quiet Thought process: Intact, Logical Thought content: Yes Intact, No Suicidal ideation, No Homicidal ideation Attention span: Capable of Focused Attention Memory description: Grossly Intact Patient reliability: Questionable Historian Intelligence estimate: Average Judgment: Fair Insight: Partial Additional Findings: Patient was closed on getting his Valium ordered he did not endorse suicidal ideation or any other psychiatric issues. He was superficially cooperative but seems irritable and easily agitated. Results - Vital Signs Vital signs: Temp Pulse Resp BP Pulse Ox 98.4 F 80 14 138/89 95 08/12/16 12:23 08/12/16 12:23 08/12/16 12:23 08/12/16 12:23 08/12/16 12:23 - Labs Labs: Laboratory Last Values WBC 10.0 K/mcL (4.3-11.1) 08/12/16 03:55 RBC 4.29 M/mcL (4.19-5.50) 08/12/16 03:55 Hgb 13.3 g/dL (12.9-16.9) 08/12/16 03:55 Hct 38.3 % (37.5-50.1) 08/12/16 03:55 MCV 89.3 fL (83.0-100.0) 08/12/16 03:55 MCH 31.0 pg (28.0-33.3) 08/12/16 03:55 MCHC 34.7 g/dL (31.6-35.5) 08/12/16 03:55 RDW 12.9 % (11.5-14.5) 08/12/16 03:55 Plt Count 186 K/mcL (140-400) 08/12/16 03:55 MPV 10.1 fL (9.4-12.4) 08/12/16 03:55 Immature Gran % 0.2 % (0-4) 08/12/16 03:55 Seg Neutrophils % 66.5 % 08/12/16 03:55 Lymphocytes % 19.5 % 08/12/16 03:55 Monocytes % 11.3 % 08/12/16 03:55 Eosinophils % 2.0 % 08/12/16 03:55 Basophils % 0.5 % 08/12/16 03:55 Neutrophils # 6.6 K/mcL (1.6-8.9) 08/12/16 03:55 Lymphocytes # 2.0 K/mcL (0.6-4.6) 08/12/16 03:55 Monocytes # 1.1 K/mcL (0.0-1.3) 08/12/16 03:55 Eosinophils # 0.2 K/mcL (0.0-0.6) 08/12/16 03:55 Basophils # 0.1 K/mcL (0.0-0.2) 08/12/16 03:55 Sodium 136 mEq/L (136-145) 08/12/16 03:55 Potassium 3.7 mEq/L (3.5-4.5) 08/12/16 03:55 Chloride 105 mEq/L (98-109) 08/12/16 03:55 Carbon Dioxide 22 mEq/L (19-29) 08/12/16 03:55 BUN 10 mg/dL (8-26) 08/12/16 03:55 Creatinine 0.85 mg/dL (0.72-1.25) 08/12/16 03:55 Est GFR ( Amer) > 60 (> 60) 08/12/16 03:55 Est GFR (Non-Af Amer) > 60 (> 60) 08/12/16 03:55 BUN/Creatinine Ratio 12 (6-26) 08/12/16 03:55 Glucose 95 mg/dL (70-99) 08/12/16 03:55 Calculated Osmolality 281 (280-300) 08/12/16 03:55 Calcium 8.7 mg/dL (8.6-10.8) 08/12/16 03:55 Phosphorus 2.7 mg/dL (2.3-4.7) 08/12/16 03:55 Magnesium 1.9 mg/dL (1.6-2.6) 08/12/16 03:55 TSH 0.227 mcIU/mL (0.350-4.840) L 08/10/16 01:14 Free T4 0.77 ng/dl (0.70-1.48) 08/11/16 04:31 Urine Color Yellow (Yellow) 08/10/16 02:10 Urine Clarity Clear (Clear) 08/10/16 02:10 Urine pH 6.0 pH Units (5.0-8.0) 08/10/16 02:10 Ur Specific [place] 1.015 (1.010-1.025) 08/10/16 02:10 Urine Protein Negative mg/dL (Neg-Trace) 08/10/16 02:10 Urine Glucose (UA) Normal mg/dL (Normal) 08/10/16 02:10 Urine Ketones Negative mg/dL (Negative) 08/10/16 02:10 Urine Blood Small (Negative) H 08/10/16 02:10 Urine Nitrite Negative (Negative) 08/10/16 02:10 Urine Bilirubin Negative (Negative) 08/10/16 02:10 Urine Urobilinogen Normal mg/dL (Normal) 08/10/16 02:10 Ur Leukocyte Esterase Negative (Negative) 08/10/16 02:10 Urine Microscopic RBC 5-15 per hpf (0-3) H 08/10/16 02:10 Urine Microscopic WBC 0-3 per hpf (0-3) 08/10/16 02:10 Ur Squamous Epith Cells Many per lpf (None-Few) H 08/10/16 02:10 Urine Bacteria None Seen per hpf (None-Few) 08/10/16 02:10 Hyaline Casts None Seen per lpf (None-Few) 08/10/16 02:10 Salicylates < 5.0 mg/dL (15-30) L 08/10/16 01:14 Urine Opiates Screen Negative ng/mL (Jyzdyx=314) 08/10/16 02:10 Acetaminophen < 1.0 mcg/mL (10-30) L 08/10/16 01:14 Ur Barbiturates Screen Negative ng/mL (Lprxrj=876) 08/10/16 02:10 Ur Phencyclidine Scrn Negative ng/mL (Cutoff=25) 08/10/16 02:10 Ur Amphetamines Screen Negative ng/mL (Vwzkha=4577) 08/10/16 02:10 U Benzodiazepines Scrn Positive ng/mL (Twxplq=174) H 08/10/16 02:10 Urine Cocaine Screen Positive ng/mL (Cutoff= 300) H 08/10/16 02:10 U Marijuana (THC) Screen Positive ng/mL (Cutoff = 50) H 08/10/16 02:10 Ethyl Alcohol 81 mg/dL (0-10) H 08/10/16 07:35 Consult Discharge Plan - Plan Additional Instructions: Recommendation: 1. Refer patient to chemical dependency program to evaluate and treat substance dependence including alcohol and opiates and benzodiazepine. 2. Patient's chronic pain will be managed by his medical provider or pain management consult. 3. Patient is not a candidate for psychiatric admission or treatment at this time.
[2016-08-12 15:06] VITALS: BP 128/84
--- NOTE | 2016-08-14 07:55 | Discharge Summary ---
Date of Encounter: 08/14/16 Time of Encounter: 07:54 - Discharge Diagnosis (1) Alcohol withdrawal syndrome Priority: Primary Status: Acute Comments: PATIENT LEFT AGAINST MEDICAL ADVICE BEFORE I COULD SEE HIM. Qualifiers: Complication of substance-induced condition: with unspecified complication Qualified Code(s): F10.239 - Alcohol dependence with withdrawal, unspecified (2) Alcohol abuse Priority: Secondary Status: Chronic - Discharge Medications Home Medications: Gabapentin [Neurontin] 300 mg PO DAILY 07/21/16 [History] Folic Acid [Folic Acid] 1 mg PO DAILY 08/10/16 [History] OxyCODONE/APAP 5/325 [Percocet 5/325 MG] 1 tab PO Q6HR PRN 08/10/16 [History] Thiamine (B-1) [Vitamin B-1] 100 mg PO DAILY 08/10/16 [History] Diazepam [Valium] 5 mg PO BID 08/11/16 [History] Allergies/Adverse Reactions: Allergies ibuprofen Adverse Reaction (Verified 08/10/16 12:10) Gastrointestinal Upset Date of admission: 08/10/16 12:01 Primary care physician: PCP NO Consults: 08/10/16 16:19 Consult to Rn Dialysis [CONS] Routine Reason for SW Consult: Alcohol intoxication 08/10/16 16:22 Consult to Psychiatry [CONS] Routine Consulting Provider: Psychiatry Nuzhat Reason for Consult: Suicidal ideation Call Completed: Yes - Patient Status Disposition: Left Against Medical Advice Condition: Fair - Discharge Instructions Follow Up With: NO,PCP [Primary Care Provider] - Additional Instructions: Recommendation: 1. Refer patient to chemical dependency program to evaluate and treat substance dependence including alcohol and opiates and benzodiazepine. 2. Patient's chronic pain will be managed by his medical provider or pain management consult. 3. Patient is not a candidate for psychiatric admission or treatment at this time. Hospital course: Mr. Murphy is a 46 year old male - Time Spent with Patient Total time spent providing and/or coordinating discharge services: - Constitutional Vitals: Temp Pulse Resp BP Pulse Ox 97.9 F 95 15 128/84 98 08/12/16 15:05 08/12/16 15:05 08/12/16 15:05 08/12/16 15:05 08/12/16 15:05 General appearance: Present: A&O X 2
== END 2016-08-12 15:05 | disposition left against medical advice (07) ==
LOC: EMEROO 00:50 → 3BNU 00:50
PROVIDERS: ADMIT Internal Medicine; ATTEND Internal Medicine

== ENCOUNTER 2016-09-12 23:40 | Inpatient (IN) ==
[2016-09-13] MEDS ORDERED: Ondansetron 4 MG/2 ML VIAL IVP ONE (00:20)
[2016-09-13] MEDS ORDERED: *HR* Morphine 2 MG/ML SYRINGE IVP ONE (00:20)
[2016-09-13] MEDS ORDERED: 0.9 % Sodium Chloride 1,000 ML IVC ONE (00:20)
[2016-09-13] MEDS ORDERED: Folic Acid 1 MG, Thiamine (B-1) 100 MG in D5% in Water 50 ML IVPB ONE (00:24)
[2016-09-13] MEDS ORDERED: Thiamine (B-1) 100 MG in D5% in Water 50 ML IVPB STA (00:24)
[2016-09-13] MEDS ORDERED: *HR* LORazepam 2 MG/ML VIAL IVP ONE (00:24)
[2016-09-13 00:42] LABS: Basophils % 0.3 %; Eosinophils # 0.1 K/mcL (0.0-0.6); Eosinophils % 1.1 %; Hematocrit 39.8 % (37.5-50.1); Hemoglobin 13.4 g/dL (12.9-16.9); Immature Granulocytes % 0.3 % (0-4); Lymphocytes # 1.7 K/mcL (0.6-4.6); Lymphocytes % 22.7 %; Mean Corpuscular HGB Conc 33.7 g/dL (31.6-35.5); Mean Corpuscular Hemoglobin 30.7 pg (28.0-33.3); Mean Corpuscular Volume 91.3 fL (83.0-100.0); Mean Platelet Volume 9.7 fL (9.4-12.4); Monocytes # 0.8 K/mcL (0.0-1.3); Monocytes % 10.7 %; Neutrophils # 4.8 K/mcL (1.6-8.9); Platelet Count 183 K/mcL (140-400); Red Blood Count 4.36 M/mcL (4.19-5.50); Red Cell Distribution Width 15.1 % (11.5-14.5); Segmented Neutrophils % 64.9 %
[2016-09-13 00:57] LABS: Alanine Aminotransferase 19 Units/L (0-55); Albumin 3.8 g/dL (3.5-5.0); Alkaline Phosphatase 63 Units/L (38-126); Aspartate Amino Transferase 33 Units/L (5-34); BUN/Creatinine Ratio 10 (6-26); Bilirubin,Direct 0.3 mg/dL (0.0-0.5); Bilirubin,Indirect 0.5 mg/dL (0.0-1.2); Blood Urea Nitrogen 10 mg/dL (8-26); Calcium 9.4 mg/dL (8.6-10.8); Carbon Dioxide 28 mEq/L (19-29); Chloride 102 mEq/L (98-109); Globulin 3.9 g/dL (2.4-3.5); Glucose 89 mg/dL (70-99); Lipase 76 Units/L (8-78); Osmolality,Calculated 289 (280-300); Sodium 140 mEq/L (136-145); Total Protein 7.7 g/dL (6.0-8.3); eGFR For African Americans > 60 (> 60); eGFR For Non-African Americans > 60 (> 60)
[2016-09-13 00:58] LABS: Bilirubin,Total 0.8 mg/dL (0.2-1.2)
--- NOTE | 2016-09-13 02:56 | Emergency Department Note ---
Disposition Clinical Impression: Alcohol abuse Abdominal pain Qualifiers: Abdominal location: epigastric Qualified Code(s): R10.13 - Epigastric pain Nausea & vomiting Qualifiers: Vomiting type: unspecified Vomiting Intractability: non-intractable Qualified Code(s): R11.2 - Nausea with vomiting, unspecified Alcohol withdrawal syndrome Qualifiers: Complication of substance-induced condition: with unspecified complication Qualified Code(s): F10.239 - Alcohol dependence with withdrawal, unspecified Disposition: Admitted As Inpatient Condition: Good Time of Disposition: 03:12 Abdominal Pain HPI - General Chief Complaint: ED Abdominal Pain Stated Complaint: Dt's & Pancreatitis Time Seen by Provider: 09/12/16 23:49 Source: patient Mode of arrival: ambulatory Nursing Notes Reviewed: Yes Vital Signs Reviewed: Yes - History of Present Illness HPI Narrative: Patient presents emergency room with generalized shaking nausea vomiting abdominal pain. He is a long-standing alcoholic drinking lots of alcohol approximately 2-3/5 of alcohol a day. He presented today to abstain from alcohol for approximately 2 days. He is concerned about going into delirium tremens or having acute for his pancreatitis. Otherwise patient has no other acute complaints. Pt Subjective Complaint: abdominal pain Onset (ago): day(s) Consistency: constant Location: epigastric Pain Severity: moderate Pain Scale: 7 Quality: stabbing, aching Radiation: none Migration to: no migration Improves with: nothing Worsens with: eating, vomiting Context: history of similar episodes Associated symptoms: Reports: nausea, vomiting, chills, anorexia Treatments prior to arrival: none - Related Data Home Medications Medication Instructions Recorded Confirmed Gabapentin [Neurontin] 300 mg PO DAILY 07/21/16 08/10/16 Folic Acid [Folic Acid] 1 mg PO DAILY 08/10/16 08/10/16 OxyCODONE/APAP 5/325 [Percocet 1 tab PO Q6HR PRN 08/10/16 08/10/16 5/325 MG] Thiamine (B-1) [Vitamin B-1] 100 mg PO DAILY 08/10/16 08/10/16 Diazepam [Valium] 5 mg PO BID 08/11/16 08/11/16 Previous Rx's Medication Instructions Recorded LORazepam [Ativan] 1 mg PO TID PRN #9 tablet 09/11/16 Allergies Allergy/AdvReac Type Severity Reaction Status Date / Time ibuprofen AdvReac Gastrointestinal Verified 09/12/16 23:44 Upset All systems ED: reviewed and negative except as stated. Constitutional: Denies: fever, chills Cardiovascular: Denies: chest pain, palpitations, dyspnea on exertion Respiratory: Denies: dyspnea, wheezes Gastrointestinal: Reports: abdominal pain, nausea, vomiting. Denies: diarrhea Genitourinary: Denies: dysuria Musculoskeletal: Denies: back pain, neck pain Psychiatric: Reports: other (Shaking secondary to alcohol withdrawal with anxiety) Abdominal Pain PMH - Past Medical History Medical history: Reports: other Male Surgical History: Reports: orthopedic, other Psychiatric history: Reports: anxiety - Social History Smoking status: Current every day smoker Alcohol use: Reports: heavy Drug use: Reports: none Physical Exam - General Limitations: no limitations General appearance: alert, in no apparent distress - Neck Neck exam: Present: normal inspection, full ROM, trachea midline - Chest Chest inspection: Present: normal inspection, symmetric chest wall rise. Absent : tenderness - Respiratory Respiratory exam: Present: normal lung sounds bilaterally. Absent: respiratory distress, wheezes, stridor, accessory muscle use - Cardiovascular Cardiovascular exam: Present: normal rhythm, tachycardia, normal heart sounds - Abdominal Exam Abdominal exam: Present: soft, tenderness (Tenderness noted in the midepigastric area radiating to the right upper and left upper quadrant. No guarding no rigidity no peritoneal symptoms). Absent: distention, guarding, rebound, rigidity, Gray's sign, Rovsing's sign, tenderness at McBurney's Point , mass, pulsatile mass, hernia - Extremities Exam Extremities exam: Present: normal inspection, full ROM - Back Exam Back exam: Present: normal inspection, full ROM. Absent: tenderness - Neurological Exam Neurological exam: Present: alert, oriented X3, CN II-XII intact, normal gait - Psychiatric Psychiatric exam: Present: normal affect, normal mood - Skin Skin exam: Present: warm, dry, intact, normal color Course Course Narrative: Patient seen and examined the time of arrival. See history of present illness. 46-year-old male presents emergency room today with nausea vomiting epigastric pain and shaking. Patient is absent from alcohol for the last 48 hours. He typically drinks 2-3 fifths of alcohol a day. He has had pancreatitis in the past. He has been trying to quit drinking and made it approximately 48 hours. He was concerned he might have delirium tremens or acute pancreatitis. Vital signs on presentation are tachycardic and tachypnea. Blood pressure is hypertensive. Physical exam shows a uncomfortable appearing male in some mild distress. Lungs are clear heart is regular. Abdomen is soft but tenderness noted in the midepigastric area radiating into right upper quadrant left upper quadrant. No guarding no rigidity no peritoneal like symptoms. Patient was also extremities Deficit. Good palpable radial DP and PT pulses. No pulsatile masses in the abdomen. Patient is concerning at this point for possible pancreatitis or progression until jaw issues. He also describes that approximately 2 days ago. Imaging of the abdomen as well as thoracic and lumbar spine. Chest x-ray also added on. Fluid specimen medication nausea medication as well as laboratory workup ordered at this point. 1 mg of Ativan given for concern for delirium tremens. Disposition pending workup. Patient says that he is trying to stop drinking alcohol and wants to go through the withdrawal process. - Reevaluation(s) Reevaluation #1: Patient's labs appear to be unremarkable at this time. CT imaging is negative for acute pancreatitis or other intra-abdominal related pathology. CT of the thoracic and lumbar spine is also negative. Vital signs been stable. Pain has been controlled. Ativan given for symptoms of shaking it seems to resolved his underlying presentation. Patient is point to be discussed with the hospitalist for admission process. Patient has no other underlying admittable diagnoses except that he has potential for going into delirium tremens secondary to alcohol abstinence. Patient is requesting to have alcohol withdrawal completed. No other medications at this time hospitals paged. Time: 02:00 Reevaluation #2: Hospitalist Dr. richard and I reviewed the patient's presentation and symptoms. He is comfortable admitting the patient this time for alcohol withdrawal. He will put in the orders for withdrawal precautions. Patient has not required any other intervention at this point. We will continue to monitor here in the emergency room until the admission process is completed Time: 03:11 Vital Signs Temperature 98.2 F 09/12/16 23:42 Pulse Rate 105 09/12/16 23:42 Respiratory Rate 18 09/12/16 23:42 Blood Pressure 166/124 09/12/16 23:42 O2 Sat by Pulse Oximetry 99 09/12/16 23:42 Temperature 98.2 F 09/12/16 23:42 Pulse Rate 73 09/13/16 03:00 Respiratory Rate 18 09/13/16 03:32 Blood Pressure 171/102 09/13/16 03:32 O2 Sat by Pulse Oximetry 95 09/13/16 03:00 Oxygen Delivery Oxygen Delivery Room Air Abdominal Pain - MDM Narrative Medical decision making narrative: Alcohol withdrawal nausea, vomiting - Medical Records Medical records reviewed: Yes I reviewed the patient's medical records. - Lab Data Lab results reviewed: Yes I reviewed the patient's lab results. Result diagrams: 09/13/16 00:24 09/13/16 00:24 Lab Results 09/13/16 09/13/16 09/13/16 Range/Units 00:24 00:24 00:24 WBC 7.4 (4.3-11.1) K/mcL RBC 4.36 (4.19-5.50) M/mcL Hgb 13.4 (12.9-16.9) g/dL Hct 39.8 (37.5-50.1) % MCV 91.3 (83.0-100.0) fL MCH 30.7 (28.0-33.3) pg MCHC 33.7 (31.6-35.5) g/dL RDW 15.1 H (11.5-14.5) % Plt Count 183 (140-400) K/mcL MPV 9.7 (9.4-12.4) fL Immature Gran % 0.3 (0-4) % Seg Neutrophils % 64.9 % Lymphocytes % 22.7 % Monocytes % 10.7 % Eosinophils % 1.1 % Basophils % 0.3 % Neutrophils # 4.8 (1.6-8.9) K/mcL Lymphocytes # 1.7 (0.6-4.6) K/mcL Monocytes # 0.8 (0.0-1.3) K/mcL Eosinophils # 0.1 (0.0-0.6) K/mcL Basophils # 0.0 (0.0-0.2) K/mcL Sodium 140 (136-145) mEq/L Potassium 4.0 (3.5-4.5) mEq/L Chloride 102 (98-109) mEq/L Carbon Dioxide 28 (19-29) mEq/L BUN 10 (8-26) mg/dL Creatinine 1.03 (0.72-1.25) mg/dL Est GFR ( Amer) > 60 (> 60) Est GFR (Non-Af Amer) > 60 (> 60) BUN/Creatinine Ratio 10 (6-26) Glucose 89 (70-99) mg/dL Calculated Osmolality 289 (280-300) Lactic Acid 1.1 (0.5-2.2) mmol/L Calcium 9.4 (8.6-10.8) mg/dL Total Bilirubin 0.8 D (0.2-1.2) mg/dL Direct Bilirubin 0.3 (0.0-0.5) mg/dL Indirect Bilirubin 0.5 (0.0-1.2) mg/dL AST 33 (5-34) Units/L ALT 19 (0-55) Units/L Alkaline Phosphatase 63 (38-126) Units/L Serum Total Protein 7.7 (6.0-8.3) g/dL Albumin 3.8 (3.5-5.0) g/dL Globulin 3.9 H (2.4-3.5) g/dL Albumin/Globulin Ratio 1.0 L (1.1-2.2) Lipase 76 (8-78) Units/L - Radiology Data Radiology results reviewed: Yes I reviewed the patient's radiology results. CT imaging of the thoracic and lumbar spine along with CT of the abdomen are negative for acute pathology or bony abnormality Attestation Statement - Attestation Attestation: I examined this patient and my medical decision-making was reviewed with the CHIEF RADIATION THERAPIST/PA/Advanced Practice Nurse/Resident Physician. I agree with the documented findings, disposition and treatment plan as described except to the extent set forth below. Patient presents to emergency department complaining of abdominal pain. Patient concern for pancreatitis. He has a history of the same. Patient is a daily drinker but has not drank anything in over 24 hours. States he is getting shaky. He wants to stop drinking. On examination the patient has a tremor. Upper abdominal tenderness without guarding. Plan. The patient's lipase is unremarkable. Patient is admitted for acute alcohol withdrawal.
[2016-09-13] MEDS ORDERED: Acetaminophen 325 MG TABLET PO PRN (04:37)
[2016-09-13] MEDS ORDERED: Naloxone 0.4 MG/ML INJ IVP PRN (04:37)
[2016-09-13] MEDS ORDERED: *HR* LORazepam 2 MG/ML VIAL IVP PRN (04:40)
--- NOTE | 2016-09-13 04:42 | Internal Med History&Physical ---
Date of Encounter: 09/13/16 Time of Encounter: 04:20 Assessment and Plan (1) Abdominal pain Current visit: Yes Status: Acute Possibly due to gastritis. start PPI. Lipase level is normal. CT abdomen is negative for acute abnormalities Qualifiers: Abdominal location: epigastric Qualified Code(s): R10.13 - Epigastric pain (2) Alcohol withdrawal syndrome Current visit: Yes Status: Acute Will start on CIWA/Alcohol withdrawal protocol. Ativan PRN. seizure precautions. Social work consult Qualifiers: Complication of substance-induced condition: with unspecified complication Qualified Code(s): F10.239 - Alcohol dependence with withdrawal, unspecified (3) Nausea & vomiting Current visit: Yes Status: Acute possibly due to gastritis / alcohol withdrawal. symptomatic treatment Qualifiers: Vomiting type: unspecified Vomiting Intractability: non-intractable Qualified Code(s): R11.2 - Nausea with vomiting, unspecified (4) Alcohol abuse Current visit: Yes Status: Chronic Counseled for cessation. started on thiamin, multivitamins (5) Liver mass, right lobe Current visit: Yes Status: Chronic Apparently unchanged from imaging compared to 2015. pt does not know about the mass and he had no biopsy in the past. Will consider MRI of the liver ( discussed with Dr Calvert, who will check for prior w/u) (6) DVT prophylaxis Current visit: No Status: Acute heparin Internal Medicine - H&P: HPI Chief complaint: Shaking Admitted From: Emergency Dept Plans for Post Hospital Care: Home History of present illness: Mr. Murphy is a 46 year old male with history of anxiety, chronic alcohol abuse and poly substance abuse, presents to the emergency room with h/o generalized shaking, nausea, vomiting and abdominal pain. He has history of alcohol abuse for several years. He reports drinking 2 bottles of gin a day. He apparently was sober last year for 5 months and then relapsed, due to multiple stressors. He apparently stopped drinking alcohol 2 days ago, to detox at home. He had generalized shaking, nausea, auditory hallucinations and hence presented to the emergency department. He was evaluated in the emergency department and is admitted to the hospitalist service for further management. He reports a recent history of fall and injured his lower back. He is expected to go for surgery next month. He reports some back pain. He reports mild epigastric abdominal pain. Denies chest pain, shortness of breath, cough, expectation, dysuria hematuria upon problems at this time. Past Med Surg Social Fam HX - Past Medical History Medical history: other Psychiatric history: anxiety - Past Surgical History Surgical History: orthopedic, other - Social History Smoking Status: Current every day smoker Packs per day: 1/2 Smokeless Tobacco Status: No Alcohol use: heavy Drug use: none - Family History Father Living Status: Internal Medicine - H&P: Meds Gabapentin [Neurontin] 300 mg PO DAILY 07/21/16 [History] Folic Acid [Folic Acid] 1 mg PO DAILY 08/10/16 [History] OxyCODONE/APAP 5/325 [Percocet 5/325 MG] 1 tab PO Q6HR PRN 08/10/16 [History] Thiamine (B-1) [Vitamin B-1] 100 mg PO DAILY 08/10/16 [History] Diazepam [Valium] 5 mg PO BID 08/11/16 [History] LORazepam [Ativan] 1 mg PO TID PRN #9 tablet 09/11/16 [Rx] Allergies ibuprofen Adverse Reaction (Verified 09/12/16 23:44) Gastrointestinal Upset All Systems PM: A 10-system review of systems was performed and is negative for pertinent findings except as documented above in the HPI. - Constitutional Vitals: Temp Pulse Resp BP Pulse Ox 97.9 F 85 14 149/76 95 09/13/16 04:34 09/13/16 04:34 09/13/16 04:34 09/13/16 04:34 09/13/16 04:34 Exam: General: Not in mild distress at the time of my evaluation HEENT: Oral mucosa is moist. No conjunctival palor or scleral icterus Neck: No obvious neck swellings Lungs: Clear to auscultation Cardiac: Regular rate and rhythm. No significant murmurs Abdomen: Mild epigastric tenderness present. Bowel sounds present Genitourinary: No blanco catheter Neurological: Alert and oriented. No gross localizing deficits. Tremor of the outstreched hands Psych: Not aggressive or agitated Extremities: no significant leg edema Skin: No generalized rash Internal Med - H&P Results - Labs CBC & Chem 7: 09/13/16 00:24 09/13/16 00:24 - Impressions ITS Impressions Abdomen/Pelvis CT 09/13/16 00:21 IMPRESSION: No evidence of acute abnormality in the abdomen or pelvis. No evidence of acute fracture or subluxation in the lumbar spine. Right hepatic lobe mass similar to the 03/13/2015 exam. Further evaluation with contrasted CT or MRI exam is recommended. D/ / Karl Shaw MD / Karl Shaw MD Interpreting Provider: aKrl Shaw MD Lumbar Spine CT 09/13/16 00:25 IMPRESSION: No evidence of acute abnormality in the abdomen or pelvis. No evidence of acute fracture or subluxation in the lumbar spine. Right hepatic lobe mass similar to the 03/13/2015 exam. Further evaluation with contrasted CT or MRI exam is recommended. D/ / Karl Shaw MD / Karl Shaw MD Interpreting Provider: Karl Shaw MD Thoracic Spine CT 09/13/16 00:25 IMPRESSION: No evidence of acute fracture or subluxation. D/ / Karl Shaw MD / Karl Shaw MD Interpreting Provider: Karl Shaw MD Chest X-Ray 09/13/16 00:26 IMPRESSION: No acute cardiopulmonary abnormality. D/ / Darien Couch MD / Darien Couch MD Interpreting Provider: Darien Couch MD
[2016-09-13] MEDS ORDERED: Water for inj. (sterile) 10 ML IV ONE (05:14)
[2016-09-13] MEDS: *HR* LORazepam 2 MG/ML VIAL IVP PRN ×4 (05:58→20:06)
[2016-09-13] MEDS: *HR* Heparin 5,000 UNIT/ML VIAL SQ SCH ×2 (05:58→18:35)
[2016-09-13] MEDS: *HR* OxyCODONE/APAP 5/325 TABLET PO PRN ×4 (07:09→22:57)
[2016-09-13] MEDS: Thiamine (B-1) 100 MG TABLET PO SCH (09:00)
[2016-09-13] MEDS: Folic Acid 1 MG TABLET PO SCH (09:00)
[2016-09-13] MEDS: Pantoprazole 40 MG VIAL IVP SCH (09:00)
[2016-09-13] MEDS: Vitamin B Complex/Vit C/Vit E 1 EACH TABLET PO SCH (09:00)
[2016-09-13 09:10] LABS: Bilirubin,Urine Negative (Negative); Blood,Urine Negative (Negative); Clarity,Urine Clear (Clear); Color,Urine Yellow (Yellow); Glucose,Urine (UA) Normal (Normal); Ketones,Urine Trace mg/dL (Negative); Leukocyte Esterase,Urine Negative (Negative); Nitrite,Urine Negative (Negative); Protein,Urine 30 mg/dL (Neg-Trace); Specific Gravity,Urine 1.024 (1.010-1.025); Urobilinogen,Urine Normal (Normal)
[2016-09-13 09:13] LABS: Bacteria,Urine None Seen per hpf (None-Few); Hyaline Casts,Urine None Seen per lpf (None-Few); RBC,Urine 0-3 per hpf (0-3); Squamous Epithelial Cell,Urine Moderate per lpf (None-Few); WBC,Urine 0-3 per hpf (0-3)
[2016-09-13] MEDS: Nicotine 21 MG PATCH.TD24 TD SCH (14:18)
--- NOTE | 2016-09-13 17:11 | Internal Med Progress Note ---
Date of Encounter: 09/13/16 Time of Encounter: 11:20 - Assessment and plan (1) Alcohol withdrawal syndrome Current Visit: Yes Status: Acute Assessment and plan: Continue CIWA protocol Qualifiers: Complication of substance-induced condition: with unspecified complication Qualified Code(s): F10.239 - Alcohol dependence with withdrawal, unspecified (2) Liver mass, right lobe Current Visit: Yes Status: Chronic Assessment and plan: Follow MRI (3) Meralgia paresthetica, right lower limb Current Visit: Yes Status: Chronic Assessment and plan: Continue current meds (4) Polysubstance dependence including opioid drug with daily use Current Visit: Yes Status: Chronic - Subjective Interval history: Mr. Murphy is a 46 year old male with history of anxiety, chronic alcohol abuse and poly substance abuse, He is admitted with diagnoses of gastritis and alcohol withdrawal Patient is seen at bedside He is awake, alert, had a good night's rest and doesn't seem to in distress He has no new complains When asked about the incidental finding of liver mass, he denies ever knowing about it. His CT scan 03/2016 shows the same size and location of mass Will order MRI - Constitutional Vitals: Temp Pulse Resp BP Pulse Ox 97.8 F 76 18 144/88 96 09/13/16 16:00 09/13/16 16:00 09/13/16 16:00 09/13/16 16:00 09/13/16 16:00 General appearance: Present: A&O X 3, pleasant, no acute distress - Head Head exam: Present: atraumatic, normocephalic - Eye Eye exam: Present: PERRL, conjuntiva pink, sclera anicteric Pupils: Present: PERRL - Neck Neck exam general surgery: Present: supple, trachea midline. Absent: lymphadenopathy - Respiratory Respiratory exam: Present: CTAB. Absent: accessory muscle use, rales, rhonchi, wheezes - Cardiovascular Cardiovascular exam: Present: RRR, +S1, +S2. Absent: diastolic murmur, gallop, rubs, systolic murmur - GI/Abdominal GI/Abdominal exam: Present: normal bowel sounds, soft, no peritoneal signs. Absent: distended, tenderness - Extremities Exam Extremities exam: Present: warm, radial pulses palpable and symetrical. Absent : calf tenderness, cyanotic, pedal edema - Neurological Exam Neurological exam: Present: CN II-XII intact, oriented X3, no focal deficits. Absent: pronater drift, facial droop, speech deficit - Skin Skin exam: Present: dry, intact Internal Medicine: Result - Labs CBC & Chem 7: 09/13/16 00:24 09/13/16 00:24 Labs: Urine 09/13/16 Range/Units 08:55 Urine Color Yellow (Yellow) Urine Clarity Clear (Clear) Urine pH 8.0 (5.0-8.0) pH Units Ur Specific [place] 1.024 (1.010-1.025) Urine Protein 30 H (Neg-Trace) mg/dL Urine Glucose (UA) Normal (Normal) mg/dL Consult Discharge Plan - Plan Referrals: NO,PCP [Primary Care Provider] -
[2016-09-14] MEDS: Ondansetron 4 MG/2 ML VIAL IV PRN ×3 (00:40→20:44)
[2016-09-14] MEDS: *HR* LORazepam 2 MG/ML VIAL IVP PRN ×4 (00:40→16:11)
[2016-09-14] MEDS: *HR* OxyCODONE/APAP 5/325 TABLET PO PRN ×4 (05:10→20:44)
[2016-09-14] MEDS: *HR* Heparin 5,000 UNIT/ML VIAL SQ SCH ×2 (06:48→16:11)
[2016-09-14] MEDS: Vitamin B Complex/Vit C/Vit E 1 EACH TABLET PO SCH (08:34)
[2016-09-14] MEDS: Thiamine (B-1) 100 MG TABLET PO SCH (08:34)
[2016-09-14] MEDS: Folic Acid 1 MG TABLET PO SCH (08:34)
[2016-09-14] MEDS: Pantoprazole 40 MG VIAL IVP SCH (08:34)
[2016-09-14] MEDS: Nicotine 21 MG PATCH.TD24 TD SCH (08:35)
[2016-09-14] MEDS: Gabapentin 300 MG CAPSULE PO SCH (12:50)
--- NOTE | 2016-09-14 13:07 | Internal Med Progress Note ---
Date of Encounter: 09/14/16 Time of Encounter: 11:50 - Assessment and plan (1) Alcohol withdrawal syndrome Current Visit: Yes Status: Acute Assessment and plan: Improved Taper ativan patient reports "never" responding to Librium in the past he was on po ativan at home 1mg tid prn Titrate ativan to home dose slowly Qualifiers: Complication of substance-induced condition: with unspecified complication Qualified Code(s): F10.239 - Alcohol dependence with withdrawal, unspecified (2) Liver mass, right lobe Current Visit: Yes Status: Chronic Assessment and plan: Stable cavernous hemangioma (3) Meralgia paresthetica, right lower limb Current Visit: Yes Status: Chronic Assessment and plan: Continue current meds (4) Polysubstance dependence including opioid drug with daily use Current Visit: Yes Status: Chronic - Subjective Interval history: Mr. Murphy is a 46 year old male with history of anxiety, chronic alcohol abuse and poly substance abuse, He is admitted with diagnoses of gastritis and alcohol withdrawal Patient is seen at bedside with partner he is again complaining of chronic low back pain and "needing more ativen" patient appears to be drug seeking, but understood the plan to start to taper him off IV ativan He is not actively withdrawing at this time Abdomen MRI shows stable cavernous hemangioma - Constitutional Vitals: Temp Pulse Resp BP Pulse Ox 97.9 F 73 15 134/87 97 09/14/16 12:07 09/14/16 12:07 09/14/16 12:07 09/14/16 12:07 09/14/16 12:07 General appearance: Present: A&O X 3, pleasant, no acute distress - Head Head exam: Present: atraumatic, normocephalic - Eye Eye exam: Present: PERRL, conjuntiva pink, sclera anicteric Pupils: Present: PERRL - Neck Neck exam general surgery: Present: supple, trachea midline. Absent: lymphadenopathy - Respiratory Respiratory exam: Present: CTAB. Absent: accessory muscle use, rales, rhonchi, wheezes - Cardiovascular Cardiovascular exam: Present: RRR, +S1, +S2. Absent: diastolic murmur, gallop, rubs, systolic murmur - GI/Abdominal GI/Abdominal exam: Present: normal bowel sounds, soft, no peritoneal signs. Absent: distended, tenderness - Extremities Exam Extremities exam: Present: warm, radial pulses palpable and symetrical. Absent : calf tenderness, cyanotic, pedal edema - Neurological Exam Neurological exam: Present: CN II-XII intact, oriented X3, no focal deficits. Absent: pronater drift, facial droop, speech deficit - Skin Skin exam: Present: dry, intact Internal Medicine: Result - Labs CBC & Chem 7: 09/13/16 00:24 09/13/16 00:24 - Impressions Impressions Abdomen MRI 09/13/16 13:14 IMPRESSION: 1. Cavernous hemangioma in the right hepatic lobe, stable since 2013. 2. Simple cysts in the left kidney. D/ / Jordan Pelletier MD / Jordan Pelletier MD Interpreting Provider: Jordan Pelletier MD Consult Discharge Plan - Plan Referrals: NO,PCP [Primary Care Provider] -
[2016-09-14] MEDS ORDERED: *HR* LORazepam 2 MG/ML VIAL IVP ONE (20:55)
[2016-09-15] MEDS: *HR* OxyCODONE/APAP 5/325 TABLET PO PRN ×3 (00:55→10:52)
[2016-09-15] MEDS: *HR* Heparin 5,000 UNIT/ML VIAL SQ SCH (06:26)
[2016-09-15] MEDS: *HR* LORazepam 2 MG/ML VIAL IVP PRN (06:26)
[2016-09-15] MEDS ORDERED: *HR* LORazepam 1 MG TABLET PO PRN (07:35)
[2016-09-15 08:08] VITALS: BP 135/88
[2016-09-15] MEDS: Thiamine (B-1) 100 MG TABLET PO SCH (08:10)
[2016-09-15] MEDS: Vitamin B Complex/Vit C/Vit E 1 EACH TABLET PO SCH (08:10)
[2016-09-15] MEDS: Gabapentin 300 MG CAPSULE PO SCH (08:10)
[2016-09-15] MEDS: Folic Acid 1 MG TABLET PO SCH (08:10)
[2016-09-15] MEDS: Nicotine 21 MG PATCH.TD24 TD SCH (08:10)
[2016-09-15] MEDS: Pantoprazole 40 MG VIAL IVP SCH (08:11)
[2016-09-15] MEDS: Ondansetron 4 MG/2 ML VIAL IV PRN (10:46)
--- NOTE | 2016-09-15 12:23 | Discharge Summary ---
Date of Encounter: 09/15/16 Time of Encounter: 12:16 - Discharge Diagnosis (1) Liver mass, right lobe Priority: Secondary Status: Chronic (2) Opiate abuse, continuous Priority: Secondary Status: Chronic (3) Benzodiazepine abuse, continuous Priority: Secondary Status: Chronic (4) Alcohol withdrawal syndrome Priority: Secondary Status: Resolved Qualifiers: Complication of substance-induced condition: with unspecified complication Qualified Code(s): F10.239 - Alcohol dependence with withdrawal, unspecified (5) Meralgia paresthetica, right lower limb Priority: Secondary Status: Chronic (6) Polysubstance dependence including opioid drug with daily use Priority: Primary Status: Chronic - Discharge Medications Home Medications: Gabapentin [Neurontin] 300 mg PO DAILY 07/21/16 [History] Folic Acid [Folic Acid] 1 mg PO DAILY 08/10/16 [History] OxyCODONE/APAP 5/325 [Percocet 5/325 MG] 1 tab PO Q6HR PRN 08/10/16 [History] Thiamine (B-1) [Vitamin B-1] 100 mg PO DAILY 08/10/16 [History] LORazepam [Ativan] 1 mg PO TID PRN #9 tablet 09/11/16 [Rx] Allergies/Adverse Reactions: Allergies ibuprofen Adverse Reaction (Verified 09/12/16 23:44) Gastrointestinal Upset Procedures/tests Complete & Pending: Procedures Performed prior 72 hours Category Date Time Status MR abdomen wo/w con [MR] Routine MRI 09/13/16 13:14 Completed Date of admission: 09/13/16 04:37 Primary care physician: PCP LEONIE Discharging clinician: Murtaza Calvert Anticipated date of discharge: 09/15/16 - Patient Status Disposition: Left Against Medical Advice Condition: Good - Discharge Instructions Follow Up With: NO,PCP [Primary Care Provider] - - Diet and Activity Activity: resume usual activities as tolerated Interval History: See below Hospital course: Mr. Murphy is a 46 year old male with PMH of Alcohol abuse and stable cavernous hemangioma Patient was admitted to observation for alcohol withdrawal He was managed with IV ativan with the CIDC protocol Imaging during this hospitalization revealed a liver mass, dates back to 2013, but patient denies ever knowing he was educated on this diagnosis and need to follow up with PCP While inpatient, patient continued to exhibit drug seeking behaviour, asking for more benzodiazepines IV than oral. I had started to taper off the benzodiazepine to his home dose I educated him on need to taper off completely and risk for withdrawal if stopped abruptly, including risk of seizures. he was with his partner and verbalized understanding However, [facility] review this a.m shows patient is physician shopping, receiving prescriptions for opiates and benzos from several physicians, including Physicians in [place] and [place] His last prescription for benzos was for 9 pills 09/11/16, shortly before patient presented to this facility with "alcohol withdrawal". he had also received 56 pills of percocet on 09/03/16, to last for 14 days and prn. This morning, patient got agitated and left the unit AMA before I could examine him - Time Spent with Patient Total time spent providing and/or coordinating discharge services: Less than 30 minutes - Constitutional Vitals: Temp Pulse Resp BP Pulse Ox 97.9 F 70 16 135/88 97 09/15/16 08:06 09/15/16 08:06 09/15/16 08:06 09/15/16 08:06 09/15/16 08:06 General appearance: Present: A&O X 3, pleasant, no acute distress Exam: PATIENT LEFT AMA BEFORE PHYSICAL EXAM
== END 2016-09-15 11:51 | disposition left against medical advice (07) | DRG 770 ==
LOC: 3BNU 23:40 → EMEROO 23:40 → 3BNU 09-13 03:40
PROVIDERS: ADMIT Internal Medicine; ATTEND Internal Medicine

== ENCOUNTER 2017-01-13 19:37 | Inpatient (IN) ==
--- NOTE | 2017-01-13 19:41 | Emergency Department Note ---
Disposition Clinical Impression: Hypokalemia, Pancreatitis, Abdominal pain, Alcohol intoxication Disposition: Admitted As Inpatient Condition: Fair General Adult HPI - General Chief complaint: ED Abdominal Pain Stated complaint: I want to stop drinking Time Seen by Provider: 01/13/17 19:39 - Related Data Previous Rx's Medication Instructions Recorded Folic Acid 1 mg PO DAILY #30 tablet 12/03/16 Multivitamin [Multivitamins] 1 each PO DAILY #30 capsule 12/03/16 Pantoprazole Sodium [Protonix] 20 mg PO DAILY #30 tab 12/03/16 Allergies Allergy/AdvReac Type Severity Reaction Status Date / Time ibuprofen AdvReac Gastrointestinal Verified 09/12/16 23:44 Upset Past Medical History - Past Medical History Medical history: Reports: other Surgical history: Reports: orthopedic, other Psychiatric history: Reports: anxiety - Social History Smoking Status: Current every day smoker Smokeless Tobacco Status: No Alcohol use: Reports: heavy Drug use: Reports: none Course Vital Signs Temperature 98.2 F 01/13/17 19:39 Pulse Rate 104 01/13/17 19:39 Respiratory Rate 18 01/13/17 19:39 Blood Pressure 141/96 01/13/17 19:39 O2 Sat by Pulse Oximetry 91 01/13/17 19:39 Temperature 101.4 F H 01/14/17 19:49 Pulse Rate 91 01/14/17 19:49 Respiratory Rate 18 01/14/17 19:49 Blood Pressure 134/68 01/14/17 19:49 O2 Sat by Pulse Oximetry 97 01/14/17 19:59 Oxygen Delivery Oxygen Delivery Room Air Medical Decision Making - Lab Data Result diagrams: 01/13/17 20:02 01/14/17 05:03 Lab Results 01/13/17 01/13/17 01/13/17 Range/Units 19:40 20:02 20:02 WBC 5.2 (4.3-11.1) K/mcL RBC 4.09 L (4.19-5.50) M/mcL Hgb 12.9 (12.9-16.9) g/dL Hct 36.8 L (37.5-50.1) % MCV 90.0 (83.0-100.0) fL MCH 31.5 (28.0-33.3) pg MCHC 35.1 (31.6-35.5) g/dL RDW 17.2 H (11.5-14.5) % Plt Count 133 L (140-400) K/mcL MPV 9.9 (9.4-12.4) fL Immature Gran % 0.4 (0-4) % Seg Neutrophils % 56.1 % Lymphocytes % 29.9 % Monocytes % 11.5 % Eosinophils % 1.1 % Basophils % 1.0 % Neutrophils # 2.9 (1.6-8.9) K/mcL Lymphocytes # 1.6 (0.6-4.6) K/mcL Monocytes # 0.6 (0.0-1.3) K/mcL Eosinophils # 0.1 (0.0-0.6) K/mcL Basophils # 0.1 (0.0-0.2) K/mcL Sodium 144 (136-145) mEq/L Potassium 2.8 L (3.5-4.5) mEq/L Chloride 103 (98-109) mEq/L Carbon Dioxide 25 (19-29) mEq/L BUN 9 (8-26) mg/dL Creatinine 1.08 (0.72-1.25) mg/dL Est GFR ( Amer) > 60 (> 60) Est GFR (Non-Af Amer) > 60 (> 60) BUN/Creatinine Ratio 8 (6-26) Glucose 94 (70-99) mg/dL POC Glucose 273 H (58-89) Calculated Osmolality 296 (280-300) Calcium 8.8 (8.6-10.8) mg/dL Phosphorus (2.3-4.7) mg/dL Magnesium (1.6-2.6) mg/dL Total Bilirubin 0.5 (0.2-1.2) mg/dL Direct Bilirubin 0.2 (0.0-0.5) mg/dL Indirect Bilirubin 0.3 (0.0-1.2) mg/dL AST 61 H (5-34) Units/L ALT 29 (0-55) Units/L Alkaline Phosphatase 73 (38-126) Units/L Serum Total Protein 7.8 (6.0-8.3) g/dL Albumin 3.8 (3.5-5.0) g/dL Globulin 4.0 H (2.4-3.5) g/dL Albumin/Globulin Ratio 1.0 L (1.1-2.2) Lipase 117 H (8-78) Units/L Ethyl Alcohol 351 H (0-10) mg/dL 01/13/17 Range/Units 20:02 WBC (4.3-11.1) K/mcL RBC (4.19-5.50) M/mcL Hgb (12.9-16.9) g/dL Hct (37.5-50.1) % MCV (83.0-100.0) fL MCH (28.0-33.3) pg MCHC (31.6-35.5) g/dL RDW (11.5-14.5) % Plt Count (140-400) K/mcL MPV (9.4-12.4) fL Immature Gran % (0-4) % Seg Neutrophils % % Lymphocytes % % Monocytes % % Eosinophils % % Basophils % % Neutrophils # (1.6-8.9) K/mcL Lymphocytes # (0.6-4.6) K/mcL Monocytes # (0.0-1.3) K/mcL Eosinophils # (0.0-0.6) K/mcL Basophils # (0.0-0.2) K/mcL Sodium (136-145) mEq/L Potassium (3.5-4.5) mEq/L Chloride (98-109) mEq/L Carbon Dioxide (19-29) mEq/L BUN (8-26) mg/dL Creatinine (0.72-1.25) mg/dL Est GFR ( Amer) (> 60) Est GFR (Non-Af Amer) (> 60) BUN/Creatinine Ratio (6-26) Glucose (70-99) mg/dL POC Glucose (58-89) Calculated Osmolality (280-300) Calcium (8.6-10.8) mg/dL Phosphorus 3.7 (2.3-4.7) mg/dL Magnesium 2.4 (1.6-2.6) mg/dL Total Bilirubin (0.2-1.2) mg/dL Direct Bilirubin (0.0-0.5) mg/dL Indirect Bilirubin (0.0-1.2) mg/dL AST (5-34) Units/L ALT (0-55) Units/L Alkaline Phosphatase (38-126) Units/L Serum Total Protein (6.0-8.3) g/dL Albumin (3.5-5.0) g/dL Globulin (2.4-3.5) g/dL Albumin/Globulin Ratio (1.1-2.2) Lipase (8-78) Units/L Ethyl Alcohol (0-10) mg/dL Attestation Statement - Attestation Attestation: I examined this patient and my medical decision-making was reviewed with the CLAM SHUCKER/PA/Advanced Practice Nurse/Resident Physician. I agree with the documented findings, disposition and treatment plan as described except to the extent set forth below. [id number] time provided Patient presents by EMS complaining of feeling shaky. He has a history of alcoholism-last drink was yesterday. He reports a history of withdrawal seizures. He is shaky and anxious appearing on exam
[2017-01-13] MEDS ORDERED: 0.9 % Sodium Chloride 1,000 ML IVC ONE (19:44)
--- NOTE | 2017-01-13 19:44 | Emergency Department Note ---
Disposition Clinical Impression: Hypokalemia, Alcohol intoxication Pancreatitis Qualifiers: Pancreatitis type: unspecified pancreatitis type Acute pancreatitis complication: unspecified Abdominal pain Qualifiers: Abdominal location: epigastric Qualified Code(s): R10.13 - Epigastric pain Disposition: Admitted As Inpatient Condition: Fair Referrals: NO,PCP [Primary Care Provider] - Forms: ED Satisfaction Letter, Work/School Release Time of Disposition: 21:54 General Adult HPI - General Chief complaint: ED Abdominal Pain Stated complaint: I want to stop drinking Time Seen by Provider: 01/13/17 19:39 Source: patient, EMS Mode of arrival: EMS Limitations: no limitations Nursing Notes Reviewed: Yes Vital Signs Reviewed: Yes - History of Present Illness HPI Narrative: 46M with hx of alcoholism and cirrhosis presents with epigastric abd pain, shakiness, and desire to quit drinking. He drinks 1L of vodka daily, and last drank yesterday. He notes nonbloody emesis. He has a hx of withdrawal seizures. He denies fever, BOLES, confusion, neck pain, blurred vision, cough, shortness of breath, chest pain, changes in urination/BMs, edema. He takes no meds daily. He admits to THC and cocaine use Pain Scale: 8 - Related Data Previous Rx's Medication Instructions Recorded Folic Acid 1 mg PO DAILY #30 tablet 12/03/16 Multivitamin [Multivitamins] 1 each PO DAILY #30 capsule 12/03/16 Pantoprazole Sodium [Protonix] 20 mg PO DAILY #30 tab 12/03/16 Allergies Allergy/AdvReac Type Severity Reaction Status Date / Time ibuprofen AdvReac Gastrointestinal Verified 09/12/16 23:44 Upset All systems ED: reviewed and negative except as stated. Past Medical History - Past Medical History Attestation: Yes The following information was validated with the patient. Source: patient Medical history: Reports: hypertension, other Surgical history: Reports: orthopedic, other Psychiatric history: Reports: anxiety - Social History Smoking Status: Current every day smoker Smokeless Tobacco Status: No Alcohol use: Reports: heavy Drug use: Reports: none Physical Exam - Head Head exam: atraumatic, normocephalic, normal inspection - Eye Eye exam: Present: normal appearance, PERRL, EOMI - ENT ENT exam: normal exam, normal oropharynx, mucous membranes moist - Neck Neck exam: Present: normal inspection, full ROM, trachea midline - Chest Chest inspection: Present: normal inspection, symmetric chest wall rise - Respiratory Respiratory exam: Clear to auscultation bilaterally without wheezes rales or rhonchi Cardiovascular Cardiovascular exam: Present: regular rate, normal rhythm, normal heart sounds - Abdominal Exam Soft, diffusely tender. No masses, rigidity, or rebound. - Expanded Lower Extremity Exam Hip/Pelvis exam: Present: normal inspection, full ROM - Back Exam Back exam: Present: normal inspection, full ROM. Absent: tenderness, CVA tenderness (R), CVA tenderness (L) - Neurological Exam Neurological exam: Present: alert, oriented X3, CN II-XII intact. Tremulous. - Psychiatric Psychiatric exam: Present: normal affect, normal mood - Skin Skin exam: Present: warm, dry, intact, normal color - General Limitations: no limitations General appearance: appears intoxicated Course - Reevaluation(s) Reevaluation #1: Alcohol level was significantly elevated to 350. With EtOH that high it is unlikely patient was actually withdrawing. He does state that he wants to withdraw and would like to the hospital. CT of abdomen and pelvis did not show any acute abnormalities. We are repleting his potassium. He is admitted to [facility] for further management. Time: 21:54 Vital Signs Temperature 98.2 F 01/13/17 19:39 Pulse Rate 104 01/13/17 19:39 Respiratory Rate 18 01/13/17 19:39 Blood Pressure 141/96 01/13/17 19:39 O2 Sat by Pulse Oximetry 91 01/13/17 19:39 Temperature 98.2 F 01/13/17 19:39 Pulse Rate 83 01/13/17 21:24 Respiratory Rate 18 01/13/17 21:24 Blood Pressure 128/87 01/13/17 21:24 O2 Sat by Pulse Oximetry 92 01/13/17 21:24 Oxygen Delivery Oxygen Delivery Nasal Cannula Medical Decision Making - Lab Data Result diagrams: 01/13/17 20:02 01/13/17 20:02 Lab Results 01/13/17 01/13/17 01/13/17 Range/Units 20:02 20:02 20:02 WBC 5.2 (4.3-11.1) K/mcL RBC 4.09 L (4.19-5.50) M/mcL Hgb 12.9 (12.9-16.9) g/dL Hct 36.8 L (37.5-50.1) % MCV 90.0 (83.0-100.0) fL MCH 31.5 (28.0-33.3) pg MCHC 35.1 (31.6-35.5) g/dL RDW 17.2 H (11.5-14.5) % Plt Count 133 L (140-400) K/mcL MPV 9.9 (9.4-12.4) fL Immature Gran % 0.4 (0-4) % Seg Neutrophils % 56.1 % Lymphocytes % 29.9 % Monocytes % 11.5 % Eosinophils % 1.1 % Basophils % 1.0 % Neutrophils # 2.9 (1.6-8.9) K/mcL Lymphocytes # 1.6 (0.6-4.6) K/mcL Monocytes # 0.6 (0.0-1.3) K/mcL Eosinophils # 0.1 (0.0-0.6) K/mcL Basophils # 0.1 (0.0-0.2) K/mcL Sodium 144 (136-145) mEq/L Potassium 2.8 L (3.5-4.5) mEq/L Chloride 103 (98-109) mEq/L Carbon Dioxide 25 (19-29) mEq/L BUN 9 (8-26) mg/dL Creatinine 1.08 (0.72-1.25) mg/dL Est GFR ( Amer) > 60 (> 60) Est GFR (Non-Af Amer) > 60 (> 60) BUN/Creatinine Ratio 8 (6-26) Glucose 94 (70-99) mg/dL Calculated Osmolality 296 (280-300) Calcium 8.8 (8.6-10.8) mg/dL Phosphorus 3.7 (2.3-4.7) mg/dL Magnesium 2.4 (1.6-2.6) mg/dL Total Bilirubin 0.5 (0.2-1.2) mg/dL Direct Bilirubin 0.2 (0.0-0.5) mg/dL Indirect Bilirubin 0.3 (0.0-1.2) mg/dL AST 61 H (5-34) Units/L ALT 29 (0-55) Units/L Alkaline Phosphatase 73 (38-126) Units/L Serum Total Protein 7.8 (6.0-8.3) g/dL Albumin 3.8 (3.5-5.0) g/dL Globulin 4.0 H (2.4-3.5) g/dL Albumin/Globulin Ratio 1.0 L (1.1-2.2) Lipase 117 H (8-78) Units/L Ethyl Alcohol 351 H (0-10) mg/dL - EKG Data EKG #1 EKG attestation: Yes I reviewed and interpreted this EKG. EKG results narrative: Normal sinus rhythm at 92 with normal axis and intervals. No ST elevation or depression. No pathologic Q waves. No old EKG available for comparison.
[2017-01-13] MEDS ORDERED: diazePAM 10 MG/2 ML SYRINGE IVP ONE (19:46)
[2017-01-13 20:28] LABS: Basophils # 0.1 K/mcL (0.0-0.2); Eosinophils # 0.1 K/mcL (0.0-0.6); Eosinophils % 1.1 %; Hematocrit 36.8 % (37.5-50.1); Hemoglobin 12.9 g/dL (12.9-16.9); Immature Granulocytes % 0.4 % (0-4); Lymphocytes # 1.6 K/mcL (0.6-4.6); Lymphocytes % 29.9 %; Mean Corpuscular HGB Conc 35.1 g/dL (31.6-35.5); Mean Corpuscular Hemoglobin 31.5 pg (28.0-33.3); Mean Platelet Volume 9.9 fL (9.4-12.4); Monocytes # 0.6 K/mcL (0.0-1.3); Monocytes % 11.5 %; Neutrophils # 2.9 K/mcL (1.6-8.9); Platelet Count 133 K/mcL (140-400); Red Blood Count 4.09 M/mcL (4.19-5.50); Red Cell Distribution Width 17.2 % (11.5-14.5); Segmented Neutrophils % 56.1 %
[2017-01-13] MEDS ORDERED: Ondansetron 4 MG/2 ML VIAL IVP ONE (20:40)
[2017-01-13] MEDS ORDERED: *HR* Morphine 2 MG/ML SYRINGE IVP ONE (20:40)
[2017-01-13 20:42] LABS: Alanine Aminotransferase 29 Units/L (0-55); Albumin 3.8 g/dL (3.5-5.0); Alkaline Phosphatase 73 Units/L (38-126); Aspartate Amino Transferase 61 Units/L (5-34); BUN/Creatinine Ratio 8 (6-26); Bilirubin,Direct 0.2 mg/dL (0.0-0.5); Bilirubin,Indirect 0.3 mg/dL (0.0-1.2); Bilirubin,Total 0.5 mg/dL (0.2-1.2); Blood Urea Nitrogen 9 mg/dL (8-26); Calcium 8.8 mg/dL (8.6-10.8); Carbon Dioxide 25 mEq/L (19-29); Chloride 103 mEq/L (98-109); Ethanol 351 mg/dL (0-10); Glucose 94 mg/dL (70-99); Lipase 117 Units/L (8-78); Osmolality,Calculated 296 (280-300); Potassium 2.8 mEq/L (3.5-4.5); Sodium 144 mEq/L (136-145); Total Protein 7.8 g/dL (6.0-8.3); eGFR For African Americans > 60 (> 60); eGFR For Non-African Americans > 60 (> 60)
[2017-01-13] MEDS ORDERED: Potassium Effervescent 25 MEQ TABLET.EFF PO ONE (20:50)
[2017-01-13 21:16] LABS: Magnesium 2.4 mg/dL (1.6-2.6); Phosphorous 3.7 mg/dL (2.3-4.7)
[2017-01-13] MEDS: Multivit/Ca/Min/Fe/FA 1 TAB TABLET PO SCH (22:53)
[2017-01-13] MEDS ORDERED: *HR* LORazepam 2 MG/ML VIAL IVP PRN (23:47)
[2017-01-14] MEDS: *HR* LORazepam 2 MG/ML VIAL IVP PRN ×7 (00:35→22:11)
[2017-01-14] MEDS ORDERED: Naloxone 0.4 MG/ML INJ IVP PRN (00:43)
--- NOTE | 2017-01-14 00:48 | Internal Med History&Physical ---
Date of Encounter: 01/14/17 Time of Encounter: 00:48 Assessment and Plan (1) Alcohol withdrawal syndrome Current visit: Yes Status: Acute Pt is started on alcohol withdrawal protocol. Close monitoring. VItamin supplements. He is at high risk of clinical deterioration. Seizure precautions. (2) Alcoholic intoxication Current visit: Yes Status: Acute She also has features of alcohol withdrawal. monitor Qualifiers: Complication of substance-induced condition: with unspecified complication Qualified Code(s): F10.129 - Alcohol abuse with intoxication, unspecified (3) Alcohol abuse Current visit: Yes Status: Chronic counseled. (4) Substance abuse Current visit: Yes Status: Chronic Will check urine tox screen (5) Nicotine dependence Current visit: Yes Status: Chronic Nicotine patch Qualifiers: Nicotine product type: cigarettes Substance use status: unspecified nicotine-induced disorder Qualified Code(s): F17.219 - Nicotine dependence, cigarettes, with unspecified nicotine-induced disorders Internal Medicine - H&P: HPI Chief complaint: Alcohol withdrawal Admitted From: Emergency Dept Plans for Post Hospital Care: Home History of present illness: Mr. Murphy is a 46 year old male With h/o HTN and alcohol (and occasional drug abuse), present to the emergency department with intent to detox. He reports hallucinations - reports bugs crawling on his skin, shaking and upper abdominal pain. Pain is vague and moderate in severity and nonradiating. His last drink apparently was yesterday morning. He apparently drinks half-gallon vodka, a day. He starts drinking in the morning and develops hallucinations if he doesn t drink in the morning. He apparently detoxed about a year ago and developed seizures at that time. He relapsed since that time. He also reports history of liver mass (per the imaging, looks like he had hemangioma) and apparently he was signed off by the oncologists. He denies chest pain, shortness of breath, cough, expectoration, fever, chills, nausea, vomiting, hematemesis, melena, hematuria. He was evaluated in the emergency department and was noted to have blood alcohol level of 350. He also had features of alcohol withdrawal and hence he was given benzodiazepines. He is admitted to the hospitalist service for further management. Past Med Surg Social Fam HX - Past Medical History Medical history: hypertension, other Psychiatric history: anxiety - Past Surgical History Surgical History: orthopedic, other - Social History Smoking Status: Current every day smoker Packs per day: 1 Smokeless Tobacco Status: No Alcohol use: heavy Drug use: none - Family History Father Living Status: Internal Medicine - H&P: Meds Folic Acid 1 mg PO DAILY #30 tablet 12/03/16 [Rx] Multivitamin [Multivitamins] 1 each PO DAILY #30 capsule 12/03/16 [Rx] Pantoprazole Sodium [Protonix] 20 mg PO DAILY #30 tab 12/03/16 [Rx] Allergies ibuprofen Adverse Reaction (Verified 09/12/16 23:44) Gastrointestinal Upset All Systems PM: A 10-system review of systems was performed and is negative for pertinent findings except as documented above in the HPI. - Constitutional Vitals: Temp Pulse Resp BP Pulse Ox 98.2 F 93 16 106/71 95 01/13/17 19:39 01/13/17 22:27 01/13/17 22:27 01/13/17 22:27 01/13/17 22:27 Exam: General: Not in acute distress at the time of my evaluation. some ?tremors in the right hand (not in the left), which stopped when I distracted him with some questions HEENT: Oral mucosa is moist. No conjunctival palor or scleral icterus Neck: No obvious neck swellings Lungs: Clear to auscultation Cardiac: Regular rate and rhythm. No significant murmurs Abdomen: Tenderness in the mid-abdomen (?hypersensitive). Bowel sounds present Genitourinary: No blanco catheter Neurological: Alert and oriented. No gross localizing deficits Psych: Not aggressive or agitated at john time of my evaluation Extremities: no significant leg edema Skin: No generalized rash Internal Med - H&P Results - Labs CBC & Chem 7: 01/13/17 20:02 01/14/17 05:03 - Impressions ITS Impressions Abdomen/Pelvis CT 01/13/17 20:04 IMPRESSION: No acute intra-abdominal or intrapelvic abnormality. The patient's known right hepatic hemangioma and left renal cysts are again seen. 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 D/ / Isadora Etienne MD / Isadora Etienne MD Interpreting Provider: Isadora Etienne MD
[2017-01-14] MEDS: Nicotine 21 MG PATCH.TD24 TD SCH ×2 (03:23→09:51)
[2017-01-14] MEDS: 0.9 % Sodium Chloride 1,000 ML IVC SCH ×3 (03:24→22:12)
[2017-01-14 05:18] LABS: Prothrombin Time 11.1 Seconds (9.4-12.1)
[2017-01-14 05:27] LABS: Alanine Aminotransferase 26 Units/L (0-55); Albumin 3.4 g/dL (3.5-5.0); Albumin/Globulin Ratio 0.9 (1.1-2.2); Alkaline Phosphatase 65 Units/L (38-126); Aspartate Amino Transferase 53 Units/L (5-34); BUN/Creatinine Ratio 8 (6-26); Bilirubin,Total 0.7 mg/dL (0.2-1.2); Blood Urea Nitrogen 7 mg/dL (8-26); Calcium 8.3 mg/dL (8.6-10.8); Carbon Dioxide 23 mEq/L (19-29); Chloride 104 mEq/L (98-109); Globulin 3.7 g/dL (2.4-3.5); Glucose 72 mg/dL (70-99); Osmolality,Calculated 289 (280-300); Potassium 3.1 mEq/L (3.5-4.5); Sodium 141 mEq/L (136-145); Total Protein 7.1 g/dL (6.0-8.3); eGFR For African Americans > 60 (> 60); eGFR For Non-African Americans > 60 (> 60)
[2017-01-14] MEDS: Pantoprazole 40 MG VIAL IVP SCH ×2 (09:49→09:51)
[2017-01-14] MEDS: Folic Acid 1 MG TABLET PO SCH (09:51)
[2017-01-14] MEDS: Vitamin B Complex/Vit C/Vit E 1 EACH TABLET PO SCH (09:51)
[2017-01-14] MEDS: Multivit/Ca/Min/Fe/FA 1 TAB TABLET PO SCH (09:51)
[2017-01-14] MEDS: Thiamine (B-1) 100 MG TABLET PO SCH (09:51)
[2017-01-14] MEDS ORDERED: Ondansetron 4 MG/2 ML VIAL IVP PRN (12:59)
--- NOTE | 2017-01-14 14:11 | Electrocardiograph Report ---
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
--- NOTE | 2017-01-14 14:12 | Event Note ---
Date of Encounter: 01/14/17 Time of Encounter: 09:00 Pt was admitted earlier this morning with acute alcohol intoxication and withdrawal. He is currently on CIWA. There have been referrals made to inpatient ETOH rehab. He is comfortable in bed. No obvious tremor noted at rest. Heart reg and not tachy. Plan Continue CIWA Replace K Discharge planning to rehab for ETOH.
[2017-01-14] MEDS: *HR* Heparin 5,000 UNIT/ML VIAL SQ SCH (19:00)
[2017-01-14] MEDS ORDERED: Acetaminophen 325 MG TABLET PO PRN (19:45)
[2017-01-14 20:34] LABS: Bilirubin,Urine Small (Negative); Blood,Urine Negative (Negative); Clarity,Urine Clear (Clear); Color,Urine Dark Yellow (Yellow); Glucose,Urine (UA) 250 mg/dL (Normal); Ketones,Urine 40 mg/dL (Negative); Leukocyte Esterase,Urine Negative (Negative); Nitrite,Urine Negative (Negative); Protein,Urine 100 mg/dL (Neg-Trace); Specific Gravity,Urine > 1.030 (1.010-1.025); Urobilinogen,Urine Normal (Normal)
[2017-01-14 20:36] LABS: Bacteria,Urine None Seen per hpf (None-Few); Hyaline Casts,Urine None Seen per lpf (None-Few); Squamous Epithelial Cell,Urine Many per lpf (None-Few)
[2017-01-14 21:37] LABS: Amphetamine Screen,Urine Negative ng/mL (Cutoff=1000); Barbiturate Screen,Urine Negative ng/mL (Cutoff=200); Benzodiazepines Screen,Urine Positive ng/mL (Cutoff=200); Cannabinoid Screen,Urine Positive ng/mL (Cutoff = 50); Cocaine Screen,Urine Positive ng/mL (Cutoff= 300); Opiate Screen,Urine Positive ng/mL (Cutoff=300); Phencyclidine Screen,Urine Negative ng/mL (Cutoff=25)
[2017-01-14] MEDS ORDERED: Levofloxacin 750 MG/150 ML 750 MG/150 ML BAG IVPB SCH (23:00)
--- NOTE | 2017-01-14 23:01 | Event Note ---
Date of Encounter: 01/14/17 Time of Encounter: 22:59 [facility] hospitalist note: I was paged re: Fever: Temp: 101.4F. UA is negative for UTI. Blood cultures ordered. CXR is suspicious for RLL pneumonia - start levofloxacin; sputum cultures; check CBC, CRP.
[2017-01-15] MEDS: *HR* LORazepam 2 MG/ML VIAL IVP PRN ×4 (02:30→23:06)
[2017-01-15] MEDS: *HR* Heparin 5,000 UNIT/ML VIAL SQ SCH ×2 (05:25→18:24)
[2017-01-15 06:14] LABS: Basophils % 0.2 %; Eosinophils # 0.1 K/mcL (0.0-0.6); Eosinophils % 0.5 %; Hemoglobin 11.8 g/dL (12.9-16.9); Immature Granulocytes % 0.8 % (0-4); Lymphocytes # 1.2 K/mcL (0.6-4.6); Lymphocytes % 10.3 %; Mean Corpuscular HGB Conc 34.7 g/dL (31.6-35.5); Mean Corpuscular Volume 89.2 fL (83.0-100.0); Mean Platelet Volume 11.1 fL (9.4-12.4); Monocytes # 0.7 K/mcL (0.0-1.3); Monocytes % 6.3 %; Neutrophils # 9.4 K/mcL (1.6-8.9); Platelet Count 131 K/mcL (140-400); Red Blood Count 3.81 M/mcL (4.19-5.50); Red Cell Distribution Width 16.7 % (11.5-14.5); Segmented Neutrophils % 81.9 %
[2017-01-15 06:23] LABS: Alanine Aminotransferase 18 Units/L (0-55); Albumin/Globulin Ratio 0.9 (1.1-2.2); Alkaline Phosphatase 57 Units/L (38-126); Aspartate Amino Transferase 33 Units/L (5-34); BUN/Creatinine Ratio 10 (6-26); Blood Urea Nitrogen 9 mg/dL (8-26); C-Reactive Protein 95 mg/L (Less than 5); Calcium 8.4 mg/dL (8.6-10.8); Carbon Dioxide 25 mEq/L (19-29); Chloride 102 mEq/L (98-109); Globulin 3.4 g/dL (2.4-3.5); Glucose 96 mg/dL (70-99); Magnesium 1.7 mg/dL (1.6-2.6); Osmolality,Calculated 281 (280-300); Potassium 3.3 mEq/L (3.5-4.5); Sodium 136 mEq/L (136-145); Total Protein 6.4 g/dL (6.0-8.3); eGFR For African Americans > 60 (> 60); eGFR For Non-African Americans > 60 (> 60)
[2017-01-15 06:25] LABS: Bilirubin,Total 1.2 mg/dL (0.2-1.2)
[2017-01-15 06:54] LABS: Anisocytosis 1+ (Not Present); Platelet Estimate Normal (Normal)
[2017-01-15] MEDS: Pantoprazole 40 MG VIAL IVP SCH (09:18)
[2017-01-15] MEDS: Multivit/Ca/Min/Fe/FA 1 TAB TABLET PO SCH (09:18)
[2017-01-15] MEDS: Nicotine 21 MG PATCH.TD24 TD SCH (09:18)
[2017-01-15] MEDS: Folic Acid 1 MG TABLET PO SCH (09:18)
[2017-01-15] MEDS: Thiamine (B-1) 100 MG TABLET PO SCH (09:18)
[2017-01-15] MEDS: Vitamin B Complex/Vit C/Vit E 1 EACH TABLET PO SCH (09:18)
[2017-01-15] MEDS: 0.9 % Sodium Chloride 1,000 ML IVC SCH (09:19)
[2017-01-15] MEDS: Piperacillin/Tazobactam 3.375 GM in D5% in Water (Mini-Bag+) 100 ML IVPB SCH ×2 (13:04→21:29)
--- NOTE | 2017-01-15 14:16 | Internal Med Progress Note ---
Date of Encounter: 01/15/17 Time of Encounter: 14:14 - Assessment and plan (1) Alcohol withdrawal syndrome Current Visit: Yes Status: Acute Assessment and plan: Had a fever last night, no seizure activity, will continue to put him on CIWA protocol, daily banana bag, IV Ativan when necessary and scheduled Librium, seizure precaution, vp digital marketing social media and crm has been consulted for outpatient rehabilitation plan Qualifiers: Complication of substance-induced condition: with unspecified complication Qualified Code(s): F10.239 - Alcohol dependence with withdrawal, unspecified (2) Right lower lobe pneumonia Current Visit: Yes Status: Acute Assessment and plan: Chest x-ray showed right lower lobe pneumonia, with elevated leukocytosis and fever, risk of aspiration pneumonia from alcohol abuse, will start him on IV Zosyn, blood culture is pending. Qualifiers: Qualified Code(s): J18.1 - Lobar pneumonia, unspecified organism (3) Elevated AST (SGOT) Current Visit: Yes Status: Acute Assessment and plan: Initially elevated 2 times ALTs but now normalized, likely secondary to alcohol abuse, continued to monitor. Ultrasound of the liver show gallstones and biliary sludge noted in the gallbladder lumen without adjacent inflammatory changes, there are 2 echogenic lesions noted in the liver most compatible with hemangiomas. (4) Substance abuse Current Visit: Yes Status: Chronic Assessment and plan: Urine drug screen reviewed, vp digital marketing social media and crm has been consulted for outpatient rehabilitation program. (5) Hypokalemia Current Visit: Yes Status: Acute Assessment and plan: Will replace it and recheck in the morning (6) DVT prophylaxis Current Visit: No Status: Acute Assessment and plan: Heparin subcutaneous twice a day. - Subjective Interval history: Patient seen and examined. Last time patient had a fever of 101.4 Fahrenheit, no seizure activities during this hospital stay, patient has no pain or complaints this morning. - Constitutional Vitals: Temp Pulse Resp BP Pulse Ox 98.4 F 79 16 144/98 98 01/15/17 11:54 01/15/17 11:54 01/15/17 11:54 01/15/17 11:54 01/15/17 11:54 General appearance: Present: A&O X 3, no acute distress. Absent: answers questions appropriately - Head Head exam: Present: atraumatic, normocephalic - Eye Eye exam: Present: PERRL, conjuntiva pink, sclera anicteric Pupils: Present: PERRL - Neck Neck exam general surgery: Present: supple, trachea midline. Absent: lymphadenopathy - Respiratory Respiratory exam: Present: CTAB. Absent: accessory muscle use, rales, rhonchi, wheezes - Cardiovascular Cardiovascular exam: Present: RRR, +S1, +S2. Absent: diastolic murmur, gallop, rubs, systolic murmur - GI/Abdominal GI/Abdominal exam: Present: normal bowel sounds, soft, no peritoneal signs. Absent: distended, tenderness - Extremities Exam Extremities exam: Present: warm, radial pulses palpable and symetrical. Absent : calf tenderness, cyanotic, pedal edema - Neurological Exam Neurological exam: Present: CN II-XII intact, oriented X3, no focal deficits. Absent: alert, pronater drift, facial droop, speech deficit - Skin Skin exam: Present: dry, intact Internal Medicine: Result - Labs CBC & Chem 7: 01/15/17 05:18 01/15/17 05:18 Labs: Short CBC 01/15/17 Range/Units 05:18 WBC 11.5 H D (4.3-11.1) K/mcL Hgb 11.8 L (12.9-16.9) g/dL Hct 34.0 L (37.5-50.1) % Plt Count 131 L (140-400) K/mcL Neutrophils # 9.4 H (1.6-8.9) K/mcL BMP 01/15/17 05:18 Sodium 136 Potassium 3.3 L Chloride 102 Carbon Dioxide 25 BUN 9 Creatinine 0.86 Glucose 96 Calcium 8.4 L Liver Function 01/15/17 Range/Units 05:18 Total Bilirubin 1.2 D (0.2-1.2) mg/dL AST 33 (5-34) Units/L ALT 18 (0-55) Units/L Alkaline Phosphatase 57 (38-126) Units/L Albumin 3.0 L (3.5-5.0) g/dL Urine 01/14/17 Range/Units 19:20 Urine Color Dark Yellow (Yellow) Urine Clarity Clear (Clear) Urine pH 6.0 (5.0-8.0) pH Units Ur Specific Howes > 1.030 H (1.010-1.025) Urine Protein 100 H (Neg-Trace) mg/dL Urine Glucose (UA) 250 H (Normal) mg/dL - ABG Interpretation ABG results: PT/INR, D-dimer PT 11.1 Seconds (9.4-12.1) 01/14/17 05:03 - Impressions Impressions Chest X-Ray 01/14/17 19:43 IMPRESSION: Findings suspicious for right lower lobe pneumonia. D/ / 01/14/2017 21:15:49 Julio C Abdi MD / elizabeth Interpreting Provider: Julio C Abdi MD Consult Discharge Plan - Plan Referrals: NO,PCP [Primary Care Provider] -
[2017-01-16] MEDS: Piperacillin/Tazobactam 3.375 GM in D5% in Water (Mini-Bag+) 100 ML IVPB SCH ×3 (04:30→20:01)
[2017-01-16] MEDS: *HR* LORazepam 2 MG/ML VIAL IVP PRN ×4 (04:30→20:07)
[2017-01-16] MEDS: *HR* Heparin 5,000 UNIT/ML VIAL SQ SCH ×2 (05:46→16:52)
[2017-01-16] MEDS: Vitamin B Complex/Vit C/Vit E 1 EACH TABLET PO SCH (09:18)
[2017-01-16] MEDS: Nicotine 21 MG PATCH.TD24 TD SCH (09:19)
[2017-01-16] MEDS: Folic Acid 1 MG TABLET PO SCH (09:19)
[2017-01-16] MEDS: Thiamine (B-1) 100 MG TABLET PO SCH (09:19)
[2017-01-16] MEDS: Multivit/Ca/Min/Fe/FA 1 TAB TABLET PO SCH (09:19)
[2017-01-16 10:01] LABS: Basophils % 0.2 %; Eosinophils # 0.1 K/mcL (0.0-0.6); Eosinophils % 1.2 %; Hematocrit 34.9 % (37.5-50.1); Hemoglobin 12.4 g/dL (12.9-16.9); Immature Granulocytes % 1.1 % (0-4); Lymphocytes # 1.7 K/mcL (0.6-4.6); Lymphocytes % 16.7 %; Mean Corpuscular HGB Conc 35.5 g/dL (31.6-35.5); Mean Corpuscular Hemoglobin 31.6 pg (28.0-33.3); Mean Platelet Volume 11.3 fL (9.4-12.4); Monocytes # 0.7 K/mcL (0.0-1.3); Monocytes % 6.8 %; Neutrophils # 7.7 K/mcL (1.6-8.9); Platelet Count 127 K/mcL (140-400); Red Blood Count 3.92 M/mcL (4.19-5.50); Red Cell Distribution Width 16.8 % (11.5-14.5)
[2017-01-16 10:15] LABS: BUN/Creatinine Ratio 7 (6-26); Blood Urea Nitrogen 6 mg/dL (8-26); Calcium 8.8 mg/dL (8.6-10.8); Carbon Dioxide 28 mEq/L (19-29); Chloride 102 mEq/L (98-109); Glucose 108 mg/dL (70-99); Osmolality,Calculated 282 (280-300); Potassium 3.1 mEq/L (3.5-4.5); Sodium 137 mEq/L (136-145); eGFR For African Americans > 60 (> 60); eGFR For Non-African Americans > 60 (> 60)
--- NOTE | 2017-01-16 11:38 | Internal Med Progress Note ---
<Darrel Contreras - Last Filed: 01/16/17 12:46> Date of Encounter: 01/16/17 Time of Encounter: 11:37 - Assessment and plan (1) Alcohol withdrawal syndrome Current Visit: Yes Status: Acute Assessment and plan: No fever last night, no seizure activity, will continue to put him on CIWA protocol, daily banana bag, IV Ativan when necessary and scheduled Librium, seizure precaution, drug abuse social worker is still working on placement of inpatient detox rehabilitation facility, likely this will take to the next week. Qualifiers: Complication of substance-induced condition: with unspecified complication Qualified Code(s): F10.239 - Alcohol dependence with withdrawal, unspecified (2) Right lower lobe pneumonia Current Visit: Yes Status: Acute Assessment and plan: Chest x-ray showed right lower lobe pneumonia, with elevated leukocytosis and fever, risk of aspiration pneumonia from alcohol abuse, we started him on IV Zosyn, blood culture and sputum culture are negative. Qualifiers: Qualified Code(s): J18.1 - Lobar pneumonia, unspecified organism (3) Elevated AST (SGOT) Current Visit: Yes Status: Acute Assessment and plan: Initially elevated 2 times ALTs but now normalized, likely secondary to alcohol abuse, continued to monitor. Ultrasound of the liver show gallstones and biliary sludge noted in the gallbladder lumen without adjacent inflammatory changes, there are 2 echogenic lesions noted in the liver most compatible with hemangiomas. (4) Substance abuse Current Visit: Yes Status: Chronic Assessment and plan: Urine drug screen reviewed, drug abuse social worker has been consulted for outpatient rehabilitation program. (5) Hypokalemia Current Visit: Yes Status: Acute Assessment and plan: Will replace it and recheck in the morning (6) DVT prophylaxis Current Visit: No Status: Acute Assessment and plan: Heparin subcutaneous twice a day. - Subjective Interval history: Patient seen and examined. No acute event overnight, no seizure activities during this hospital stay, patient has no pain or complaints this morning except that patient has been constipated for a few days. - Constitutional Vitals: Temp Pulse Resp BP Pulse Ox 98.5 F 70 18 133/95 95 01/16/17 07:22 01/16/17 07:22 01/16/17 07:22 01/16/17 07:22 01/16/17 07:22 General appearance: Present: cooperative, A&O X 3, no acute distress, answers questions appropriately - Head Head exam: Present: atraumatic, normocephalic - Eye Eye exam: Present: PERRL, conjuntiva pink, sclera anicteric Pupils: Present: PERRL - Neck Neck exam general surgery: Present: supple, trachea midline. Absent: lymphadenopathy - Respiratory Respiratory exam: Present: CTAB. Absent: accessory muscle use, rales, rhonchi, wheezes - Cardiovascular Cardiovascular exam: Present: RRR, +S1, +S2. Absent: diastolic murmur, gallop, rubs, systolic murmur - GI/Abdominal GI/Abdominal exam: Present: normal bowel sounds, soft, no peritoneal signs. Absent: distended, tenderness - Extremities Exam Extremities exam: Present: warm, radial pulses palpable and symetrical. Absent : calf tenderness, cyanotic, pedal edema - Neurological Exam Neurological exam: Present: CN II-XII intact, oriented X3, no focal deficits. Absent: pronater drift, facial droop, speech deficit - Skin Skin exam: Present: dry, intact Internal Medicine: Result - Labs CBC & Chem 7: 01/16/17 09:00 01/16/17 09:00 Labs: Short CBC 01/16/17 Range/Units 09:00 WBC 10.3 (4.3-11.1) K/mcL Hgb 12.4 L (12.9-16.9) g/dL Hct 34.9 L (37.5-50.1) % Plt Count 127 L (140-400) K/mcL Neutrophils # 7.7 (1.6-8.9) K/mcL BMP 01/16/17 09:00 Sodium 137 Potassium 3.1 L Chloride 102 Carbon Dioxide 28 BUN 6 L Creatinine 0.82 Glucose 108 H Calcium 8.8 - ABG Interpretation ABG results: PT/INR, D-dimer PT 11.1 Seconds (9.4-12.1) 01/14/17 05:03 Consult Discharge Plan - Plan Referrals: NO,PCP [Primary Care Provider] - <Zay Dominguez - Last Filed: 01/16/17 15:17> Date of Encounter: 01/16/17 - Constitutional Vitals: Temp Pulse Resp BP Pulse Ox 98.1 F 65 18 145/101 96 01/16/17 11:00 01/16/17 12:02 01/16/17 12:02 01/16/17 12:02 01/16/17 12:02 Internal Medicine: Result - Labs CBC & Chem 7: 01/16/17 09:00 01/16/17 09:00 Labs: Short CBC 01/16/17 Range/Units 09:00 WBC 10.3 (4.3-11.1) K/mcL Hgb 12.4 L (12.9-16.9) g/dL Hct 34.9 L (37.5-50.1) % Plt Count 127 L (140-400) K/mcL Neutrophils # 7.7 (1.6-8.9) K/mcL BMP 01/16/17 09:00 Sodium 137 Potassium 3.1 L Chloride 102 Carbon Dioxide 28 BUN 6 L Creatinine 0.82 Glucose 108 H Calcium 8.8 - ABG Interpretation ABG results: PT/INR, D-dimer PT 11.1 Seconds (9.4-12.1) 01/14/17 05:03 - Attending Attestation I saw and examined pt. I have discussed with Resident Dr Contreras regarding pt's management plan. I agree with the documentation. Cont CIWA protocol. Closely monitor pt. Detox placement per SW.
[2017-01-16] MEDS: Benzonatate 100 MG CAPSULE PO PRN (16:52)
[2017-01-17] MEDS: *HR* LORazepam 2 MG/ML VIAL IVP PRN ×8 (00:43→23:43)
[2017-01-17] MEDS: Benzonatate 100 MG CAPSULE PO PRN ×3 (00:43→17:42)
[2017-01-17] MEDS ORDERED: *HR* Morphine 2 MG/ML SYRINGE IVP ONE (00:46)
[2017-01-17] MEDS: Piperacillin/Tazobactam 3.375 GM in D5% in Water (Mini-Bag+) 100 ML IVPB SCH ×3 (03:43→22:33)
[2017-01-17 05:16] LABS: Potassium 3.5 mEq/L (3.5-4.5)
[2017-01-17] MEDS: *HR* Heparin 5,000 UNIT/ML VIAL SQ SCH ×2 (06:29→17:36)
--- NOTE | 2017-01-17 09:29 | Internal Med Progress Note ---
<Darrel Contreras - Last Filed: 01/17/17 09:26> Date of Encounter: 01/17/17 Time of Encounter: 09:27 - Assessment and plan (1) Upper abdominal pain Current Visit: Yes Status: Acute Assessment and plan: Patient has a history of pancreatitis 4 times in the past, patient started to develop upper abdominal pain since last night, he states that the pain is somewhat similar to the previous pancreatitis pain, will check hepatic panel plus amylase/lipase. (2) Alcohol withdrawal syndrome Current Visit: Yes Status: Acute Assessment and plan: No fever last night, no seizure activity, will continue to put him on CIWA protocol, daily banana bag, IV Ativan when necessary and scheduled Librium, seizure precaution, social work manager is still working on placement of inpatient detox rehabilitation facility, likely this will take to the next week. Qualifiers: Complication of substance-induced condition: with unspecified complication Qualified Code(s): F10.239 - Alcohol dependence with withdrawal, unspecified (3) Right lower lobe pneumonia Current Visit: Yes Status: Acute Assessment and plan: Chest x-ray showed right lower lobe pneumonia, with elevated leukocytosis and fever, risk of aspiration pneumonia from alcohol abuse, we started him on IV Zosyn, blood culture and sputum culture are negative. Qualifiers: Qualified Code(s): J18.1 - Lobar pneumonia, unspecified organism (4) Elevated AST (SGOT) Current Visit: Yes Status: Acute Assessment and plan: Initially elevated 2 times ALTs but now normalized, likely secondary to alcohol abuse, continued to monitor. Ultrasound of the liver show gallstones and biliary sludge noted in the gallbladder lumen without adjacent inflammatory changes, there are 2 echogenic lesions noted in the liver most compatible with hemangiomas. (5) Substance abuse Current Visit: Yes Status: Inactive Assessment and plan: Urine drug screen reviewed, social work manager has been consulted for outpatient rehabilitation program. (6) Hypokalemia Current Visit: Yes Status: Acute Assessment and plan: Placed yesterday and the level improved this morning. (7) DVT prophylaxis Current Visit: No Status: Acute Assessment and plan: Heparin subcutaneous twice a day. - Subjective Interval history: Patient seen and examined. Patient states that he has upper abdominal pain since last night radiates to his back, he states that this pain is somewhat similar to the pancreatitis pain that he had in the past, he has a history of pancreatitis 4 times due to alcohol abuse. - Constitutional Vitals: Temp Pulse Resp BP Pulse Ox 97.9 F 62 18 131/96 97 01/17/17 08:10 01/17/17 08:10 01/17/17 08:10 01/17/17 08:10 01/17/17 08:10 General appearance: Present: cooperative, A&O X 3, no acute distress, answers questions appropriately - Head Head exam: Present: atraumatic, normocephalic - Eye Eye exam: Present: PERRL, conjuntiva pink, sclera anicteric Pupils: Present: PERRL - Neck Neck exam general surgery: Present: supple, trachea midline. Absent: lymphadenopathy - Respiratory Respiratory exam: Present: CTAB. Absent: accessory muscle use, rales, rhonchi, wheezes - Cardiovascular Cardiovascular exam: Present: RRR, +S1, +S2. Absent: diastolic murmur, gallop, rubs, systolic murmur - GI/Abdominal GI/Abdominal exam: Present: normal bowel sounds, soft, tenderness (to palpation diffusely, mostly in the upper area). Absent: distended, firm, guarding, rebound, rigid - Extremities Exam Extremities exam: Present: warm, radial pulses palpable and symetrical. Absent : calf tenderness, cyanotic, pedal edema - Neurological Exam Neurological exam: Present: CN II-XII intact, oriented X3, no focal deficits - Skin Skin exam: Present: dry, intact Internal Medicine: Result - Labs CBC & Chem 7: 01/16/17 09:00 01/17/17 04:06 Labs: Short CBC 01/16/17 Range/Units 09:00 WBC 10.3 (4.3-11.1) K/mcL Hgb 12.4 L (12.9-16.9) g/dL Hct 34.9 L (37.5-50.1) % Plt Count 127 L (140-400) K/mcL Neutrophils # 7.7 (1.6-8.9) K/mcL BMP 01/16/17 01/17/17 09:00 04:06 Sodium 137 Potassium 3.1 L 3.5 Chloride 102 Carbon Dioxide 28 BUN 6 L Creatinine 0.82 Glucose 108 H Calcium 8.8 - ABG Interpretation ABG results: PT/INR, D-dimer PT 11.1 Seconds (9.4-12.1) 01/14/17 05:03 Consult Discharge Plan - Plan Referrals: NO,PCP [Primary Care Provider] - <AlbertoDeionannalisa - Last Filed: 01/17/17 15:50> Date of Encounter: 01/17/17 - Constitutional Vitals: Temp Pulse Resp BP Pulse Ox 97.9 F 62 18 131/96 97 01/17/17 08:10 01/17/17 08:10 01/17/17 08:10 01/17/17 08:10 01/17/17 09:30 Internal Medicine: Result - Labs CBC & Chem 7: 01/16/17 09:00 01/17/17 04:06 Labs: BMP 01/17/17 04:06 Potassium 3.5 Liver Function 01/17/17 Range/Units 04:06 Total Bilirubin 0.6 (0.2-1.2) mg/dL Direct Bilirubin 0.2 (0.0-0.5) mg/dL AST 29 (5-34) Units/L ALT 16 (0-55) Units/L Alkaline Phosphatase 59 (38-126) Units/L Albumin 3.1 L (3.5-5.0) g/dL - ABG Interpretation ABG results: PT/INR, D-dimer PT 11.1 Seconds (9.4-12.1) 01/14/17 05:03 - Attending Attestation I saw and examined pt. I have discussed with Resident Dr Contreras regarding pt's management plan. I agree with the documentation. Pt is stable, continue current treatment and wait for detox referal on Thursday. Decrease librium dose to 25mg bid.
[2017-01-17 10:18] LABS: Albumin 3.1 g/dL (3.5-5.0); Albumin/Globulin Ratio 0.8 (1.1-2.2); Bilirubin,Direct 0.2 mg/dL (0.0-0.5); Bilirubin,Indirect 0.4 mg/dL (0.0-1.2); Bilirubin,Total 0.6 mg/dL (0.2-1.2); Globulin 3.7 g/dL (2.4-3.5); Total Protein 6.8 g/dL (6.0-8.3)
[2017-01-17] MEDS: Folic Acid 1 MG TABLET PO SCH (10:27)
[2017-01-17] MEDS: Vitamin B Complex/Vit C/Vit E 1 EACH TABLET PO SCH (10:27)
[2017-01-17] MEDS: Multivit/Ca/Min/Fe/FA 1 TAB TABLET PO SCH (10:27)
[2017-01-17] MEDS: Nicotine 21 MG PATCH.TD24 TD SCH (10:27)
[2017-01-17] MEDS: Thiamine (B-1) 100 MG TABLET PO SCH (10:27)
[2017-01-17] MEDS: *HR* OxyCODONE/APAP 5/325 TABLET PO PRN ×2 (13:11→20:11)
[2017-01-18] MEDS: Melatonin 3 MG TABLET PO PRN ×2 (01:22→22:00)
[2017-01-18] MEDS: *HR* LORazepam 2 MG/ML VIAL IVP PRN ×8 (03:51→21:59)
[2017-01-18] MEDS: Piperacillin/Tazobactam 3.375 GM in D5% in Water (Mini-Bag+) 100 ML IVPB SCH ×3 (03:51→20:45)
[2017-01-18] MEDS: *HR* OxyCODONE/APAP 5/325 TABLET PO PRN ×3 (04:09→20:45)
[2017-01-18 04:11] LABS: Basophils % 0.4 %; Eosinophils # 0.1 K/mcL (0.0-0.6); Eosinophils % 1.5 %; Hemoglobin 12.3 g/dL (12.9-16.9); Immature Granulocytes % 1.8 % (0-4); Lymphocytes # 2.6 K/mcL (0.6-4.6); Lymphocytes % 28.8 %; Mean Corpuscular HGB Conc 34.2 g/dL (31.6-35.5); Mean Corpuscular Hemoglobin 30.8 pg (28.0-33.3); Mean Corpuscular Volume 90.2 fL (83.0-100.0); Mean Platelet Volume 10.3 fL (9.4-12.4); Monocytes % 10.9 %; Neutrophils # 5.2 K/mcL (1.6-8.9); Platelet Count 157 K/mcL (140-400); Red Blood Count 3.99 M/mcL (4.19-5.50); Segmented Neutrophils % 56.6 %
[2017-01-18] MEDS: Benzonatate 100 MG CAPSULE PO PRN ×2 (04:13→09:26)
[2017-01-18] MEDS: *HR* Heparin 5,000 UNIT/ML VIAL SQ SCH ×2 (06:43→16:59)
--- NOTE | 2017-01-18 07:16 | Internal Med Progress Note ---
<Darrel Contreras - Last Filed: 01/18/17 08:35> Date of Encounter: 01/18/17 Time of Encounter: 07:16 - Assessment and plan (1) Alcohol withdrawal syndrome Current Visit: Yes Status: Acute Assessment and plan: No fever last night, no seizure activity, will continue to put him on CIWA protocol, daily banana bag, IV Ativan when necessary and scheduled Librium, seizure precaution, psychotherapist social worker is still working on placement of inpatient detox rehabilitation facility, likely this will take to the next week. Qualifiers: Complication of substance-induced condition: with unspecified complication Qualified Code(s): F10.239 - Alcohol dependence with withdrawal, unspecified (2) Right lower lobe pneumonia Current Visit: Yes Status: Acute Assessment and plan: Chest x-ray showed right lower lobe pneumonia, with elevated leukocytosis and fever, risk of aspiration pneumonia from alcohol abuse, we started him on IV Zosyn, blood culture and sputum culture are negative. Qualifiers: Qualified Code(s): J18.1 - Lobar pneumonia, unspecified organism (3) Elevated AST (SGOT) Current Visit: Yes Status: Acute Assessment and plan: Initially elevated 2 times ALTs but now normalized, likely secondary to alcohol abuse, continued to monitor. Ultrasound of the liver show gallstones and biliary sludge noted in the gallbladder lumen without adjacent inflammatory changes, there are 2 echogenic lesions noted in the liver most compatible with hemangiomas. (4) Substance abuse Current Visit: Yes Status: Inactive Assessment and plan: Urine drug screen reviewed, psychotherapist social worker has been consulted for outpatient rehabilitation program. (5) Low back pain Current Visit: Yes Status: Acute Assessment and plan: Patient now stating that he has low back pain more so than abdominal pain, CT scan of the lumbar spine without contrast 4 months ago showed no evidence of acute fracture or subluxation in the lumbar spine, will continue supportive care. Qualifiers: Qualified Code(s): M54.5 - Low back pain (6) DVT prophylaxis Current Visit: No Status: Acute Assessment and plan: Heparin subcutaneous twice a day. - Subjective Interval history: Patient seen and examined. Patient now stating that his abdominal pain is coming more from his lower back, no acute event overnight, no seizure activity during this hospital stay. - Constitutional Vitals: Temp Pulse Resp BP Pulse Ox 98.1 F 66 18 147/107 96 01/18/17 04:41 06/18/17 04:41 01/18/17 04:41 01/18/17 04:41 01/18/17 04:41 General appearance: Present: cooperative, A&O X 3, no acute distress, answers questions appropriately - Head Head exam: Present: atraumatic, normocephalic - Eye Eye exam: Present: PERRL, conjuntiva pink, sclera anicteric Pupils: Present: PERRL - Neck Neck exam general surgery: Present: supple, trachea midline. Absent: lymphadenopathy - Respiratory Respiratory exam: Present: decreased breath sounds (Diminished at base bilateral ). Absent: accessory muscle use, rales, rhonchi, wheezes - Cardiovascular Cardiovascular exam: Present: RRR, +S1, +S2. Absent: diastolic murmur, gallop, rubs, systolic murmur - GI/Abdominal GI/Abdominal exam: Present: normal bowel sounds, soft, no peritoneal signs. Absent: distended, tenderness - Extremities Exam Extremities exam: Present: warm, radial pulses palpable and symetrical. Absent : calf tenderness, cyanotic, pedal edema - Neurological Exam Neurological exam: Present: CN II-XII intact, oriented X3, no focal deficits. Absent: pronater drift, facial droop, speech deficit - Skin Skin exam: Present: dry, intact Internal Medicine: Result - Labs CBC & Chem 7: 01/18/17 03:50 01/17/17 04:06 Labs: Short CBC 01/18/17 Range/Units 03:50 WBC 9.1 (4.3-11.1) K/mcL Hgb 12.3 L (12.9-16.9) g/dL Hct 36.0 L (37.5-50.1) % Plt Count 157 (140-400) K/mcL Neutrophils # 5.2 (1.6-8.9) K/mcL Liver Function 01/17/17 Range/Units 04:06 Total Bilirubin 0.6 (0.2-1.2) mg/dL Direct Bilirubin 0.2 (0.0-0.5) mg/dL AST 29 (5-34) Units/L ALT 16 (0-55) Units/L Alkaline Phosphatase 59 (38-126) Units/L Albumin 3.1 L (3.5-5.0) g/dL - ABG Interpretation ABG results: PT/INR, D-dimer PT 11.1 Seconds (9.4-12.1) 01/14/17 05:03 Consult Discharge Plan - Plan Referrals: NO,PCP [Primary Care Provider] - <Zay Dominguez - Last Filed: 01/18/17 14:47> Date of Encounter: 01/18/17 - Constitutional Vitals: Temp Pulse Resp BP Pulse Ox 98 F 66 16 130/92 97 01/18/17 07:31 01/18/17 07:31 01/18/17 07:31 01/18/17 07:31 01/18/17 07:31 Internal Medicine: Result - Labs CBC & Chem 7: 01/18/17 03:50 01/17/17 04:06 Labs: Short CBC 01/18/17 Range/Units 03:50 WBC 9.1 (4.3-11.1) K/mcL Hgb 12.3 L (12.9-16.9) g/dL Hct 36.0 L (37.5-50.1) % Plt Count 157 (140-400) K/mcL Neutrophils # 5.2 (1.6-8.9) K/mcL - ABG Interpretation ABG results: PT/INR, D-dimer PT 11.1 Seconds (9.4-12.1) 01/14/17 05:03 - Attending Attestation I saw and examined pt. I have discussed with Resident Dr Contreras regarding pt's management plan. I agree with the documentation. Pt doing fine, waiting for placement.
[2017-01-18] MEDS: Nicotine 21 MG PATCH.TD24 TD SCH (09:26)
[2017-01-18] MEDS: Multivit/Ca/Min/Fe/FA 1 TAB TABLET PO SCH (09:26)
[2017-01-18] MEDS: Folic Acid 1 MG TABLET PO SCH (09:26)
[2017-01-18] MEDS: Vitamin B Complex/Vit C/Vit E 1 EACH TABLET PO SCH (09:26)
[2017-01-18] MEDS: Thiamine (B-1) 100 MG TABLET PO SCH (09:26)
[2017-01-19] MEDS: *HR* LORazepam 2 MG/ML VIAL IVP PRN ×4 (02:08→10:30)
[2017-01-19] MEDS: *HR* OxyCODONE/APAP 5/325 TABLET PO PRN ×2 (04:12→10:22)
[2017-01-19] MEDS: Piperacillin/Tazobactam 3.375 GM in D5% in Water (Mini-Bag+) 100 ML IVPB SCH (04:13)
[2017-01-19] MEDS: Benzonatate 100 MG CAPSULE PO PRN ×2 (04:20→10:30)
[2017-01-19] MEDS: *HR* Heparin 5,000 UNIT/ML VIAL SQ SCH (06:32)
[2017-01-19 07:02] VITALS: BP 148/102
--- NOTE | 2017-01-19 10:08 | Discharge Summary ---
<Darrel Contreras - Last Filed: 01/19/17 10:05> Date of Encounter: 01/19/17 Time of Encounter: 10:05 - Discharge Diagnosis (1) Alcohol withdrawal syndrome Priority: Primary Status: Acute Qualifiers: Complication of substance-induced condition: with unspecified complication Qualified Code(s): F10.239 - Alcohol dependence with withdrawal, unspecified (2) Right lower lobe pneumonia Priority: Primary Status: Acute Qualifiers: Qualified Code(s): J18.1 - Lobar pneumonia, unspecified organism (3) Elevated AST (SGOT) Priority: Secondary Status: Acute (4) Substance abuse Priority: Secondary Status: Inactive (5) Low back pain Priority: Secondary Status: Acute Qualifiers: Qualified Code(s): M54.5 - Low back pain (6) DVT prophylaxis Priority: Secondary Status: Acute - Discharge Medications Prescriptions: Amoxicillin/Clavulanate [Augmentin] 875 mg PO BIDWM 3 Days Thiamine (B-1) [Vitamin B-1] 100 mg PO DAILY #10 tablet Home Medications: Folic Acid 1 mg PO DAILY #30 tablet 12/03/16 [Rx] Multivitamin [Multivitamins] 1 each PO DAILY #30 capsule 12/03/16 [Rx] Pantoprazole Sodium [Protonix] 20 mg PO DAILY #30 tab 12/03/16 [Rx] Amoxicillin/Clavulanate [Augmentin] 875 mg PO BIDWM 3 Days 01/19/17 [Rx] Thiamine (B-1) [Vitamin B-1] 100 mg PO DAILY #10 tablet 01/19/17 [Rx] Allergies/Adverse Reactions: Allergies ibuprofen Adverse Reaction (Verified 09/12/16 23:44) Gastrointestinal Upset Date of admission: 01/14/17 00:43 Primary care physician: PCP NO Consults: 01/16/17 08:21 Consult to Physical Therapy [CONS] Routine Comment: Evaluate, develop and implement POC Reason for Consult: weakness OT [Consult to Occupational Therapy] [CONS] Routine Comment: Evaluate, develop and implement POC Reason for Consult: weakness Discharging clinician: Darrel Contreras Anticipated date of discharge: 01/19/17 - Patient Status Disposition: Transfer Inpatient Rehab Fac Condition: Fair Functional capacity at discharge: independent ambulation Overall status at discharge: patient is progressing back to baseline - Discharge Instructions Instructions: Thiamine (Vitamin B-1) (By mouth), Amoxicillin/Clavulanate Potassium (By mouth), Pancreatitis (DC), Pneumonia (DC) Follow Up With: Jo Villa MD [Non-Partnered Physician] - (We are going to set you up with our residency clinic here at [facility]. We will call you with appt date & time down at your facility you will be in and let you know when it is.) Additional Instructions: As tolerated. - Diet and Activity Activity: resume usual activities as tolerated Diet: low fat, low cholesterol Hospital course: Mr. Murphy is a 46 year old male with a history of hypertension, and alcohol/ illicit drug abuse, who presents to ER with intention to detoxification, patient 's last drink was the day prior to him coming into the ER, the urine drug screen showed positive opiate, benzodiazepine, cocaine, marijuana, alcohol level was 351, patient also states that he had a history of seizure from alcohol abuse withdrawal symptoms, along with hallucination, patient was admitted to this hospital for alcohol withdrawal syndrome with visual hallucination and upper abdominal pain. Patient was started on daily rally pack , he was placed on ciwa protocol with a seizure precaution, Ativan IV when necessary and scheduled Librium, during this hospital stay patient developed leukocytosis and fever, chest x-ray showed possible underlying pneumonia, due to alcoholic abuse history, Zosyn IV was started concerning for aspiration pneumonia, patient's fever and leukocytosis resolved after starting him on antibiotic. take away worker was consulted for hospital discharge plan with placement of inpatient detox rehabilitation facility, which patient was approved today therefore pt will be discharged to the inpatient facility in stable condition. - Time Spent with Patient Total time spent providing and/or coordinating discharge services: - Constitutional Vitals: Temp Pulse Resp BP Pulse Ox 97.8 F 67 18 148/102 95 01/19/17 07:01 01/19/17 07:01 01/19/17 07:01 01/19/17 07:01 01/19/17 07:01 General appearance: Present: cooperative, A&O X 3, no acute distress, answers questions appropriately - Head Head exam: Present: atraumatic, normocephalic - Eye Eye exam: Present: PERRL, conjuntiva pink, sclera anicteric Pupils: Present: PERRL - Neck Neck exam general surgery: Present: supple, trachea midline. Absent: lymphadenopathy - Respiratory Respiratory exam: Present: CTAB. Absent: accessory muscle use, rales, rhonchi, wheezes - Cardiovascular Cardiovascular exam: Present: RRR, +S1, +S2. Absent: diastolic murmur, gallop, rubs, systolic murmur - GI/Abdominal GI/Abdominal exam: Present: normal bowel sounds, soft, no peritoneal signs. Absent: distended, tenderness - Extremities Exam Extremities exam: Present: warm, radial pulses palpable and symetrical. Absent : calf tenderness, cyanotic, pedal edema - Neurological Exam Neurological exam: Present: CN II-XII intact, oriented X3, no focal deficits. Absent: pronater drift, facial droop, speech deficit - Skin Skin exam: Present: dry, intact <Zay Dominguez - Last Filed: 01/19/17 14:39> Date of Encounter: 01/19/17 Date of admission: 01/14/17 00:43 Primary care physician: PCP NO Consults: 01/16/17 08:21 Consult to Physical Therapy [CONS] Routine Comment: Evaluate, develop and implement POC Reason for Consult: weakness OT [Consult to Occupational Therapy] [CONS] Routine Comment: Evaluate, develop and implement POC Reason for Consult: weakness Hospital course: Mr. Murphy is a 46 year old male - Time Spent with Patient Total time spent providing and/or coordinating discharge services: - Constitutional Vitals: Temp Pulse Resp BP Pulse Ox 97.8 F 67 18 148/102 95 01/19/17 07:01 01/19/17 07:01 01/19/17 07:01 01/19/17 07:01 01/19/17 07:01 - Attending Attestation I saw and examined pt. I have discussed with Resident Dr Contreras regarding pt's management plan. I agree with the documentation. Pt is doing well. No signs of alcohol withdraw. Will d/c to rehab/detox for further management.
[2017-01-19] MEDS: Nicotine 21 MG PATCH.TD24 TD SCH (10:21)
[2017-01-19] MEDS: Thiamine (B-1) 100 MG TABLET PO SCH (10:22)
[2017-01-19] MEDS: Multivit/Ca/Min/Fe/FA 1 TAB TABLET PO SCH (10:22)
[2017-01-19] MEDS: Folic Acid 1 MG TABLET PO SCH (10:22)
[2017-01-19] MEDS: Vitamin B Complex/Vit C/Vit E 1 EACH TABLET PO SCH (10:22)
--- NOTE | 2017-01-19 10:24 | Physician Discharge Referral ---
ExtendedCare Referral Info Transfer To: inpt detox rehab facility Provider in Charge: dr. guerra Provider in Charge after Transfer: PCP Institutional Level of Care: Skilled - Diagnosis (1) Alcohol withdrawal syndrome Priority: Primary Status: Acute (2) Right lower lobe pneumonia Status: Acute (3) Elevated AST (SGOT) Status: Acute (4) Substance abuse Status: Inactive (5) Low back pain Status: Acute (6) DVT prophylaxis Status: Acute - Transfer Medications Prescriptions: Amoxicillin/Clavulanate [Augmentin] 875 mg PO BIDWM 3 Days Thiamine (B-1) [Vitamin B-1] 100 mg PO DAILY #10 tablet Home Medications: Folic Acid 1 mg PO DAILY #30 tablet 12/03/16 [Rx] Multivitamin [Multivitamins] 1 each PO DAILY #30 capsule 12/03/16 [Rx] Pantoprazole Sodium [Protonix] 20 mg PO DAILY #30 tab 12/03/16 [Rx] Amoxicillin/Clavulanate [Augmentin] 875 mg PO BIDWM 3 Days 01/19/17 [Rx] Thiamine (B-1) [Vitamin B-1] 100 mg PO DAILY #10 tablet 01/19/17 [Rx] Allergies/Adverse Reactions: Allergies ibuprofen Adverse Reaction (Verified 09/12/16 23:44) Gastrointestinal Upset - Respiratory Orders None Smoking Cessation: Smoking cessation has been advised. For more information, call the [place] Tobacco Quit Line at 5-376-AUDWNOW. - Ancillary Orders May use pressure relief devices daily prn, May go on [place] w/family/respon republican w /meds at nurse discretion PRN, May consult with Dentist, Yard Switch Operator, Warhead Maintenance Specialist PRN - Advance Directives Code Status: Full Code - Mobility Orders Ambulate - Rehabiliation Orders Rehab Potential: Good Rehab Orders: ROM Exercises - Treatments Skin tear care topically daily PRN per policy, May check for fecal impaction rectally daily PRN, Fleet enema rectally every other day PRN cleansing purposes - Diet Orders Regular CERTIFICATION: I certify that the transfer of the above named patient to an Extended Care Facility is necessary for the continuing treatment of the diagnosis listed. The above information is true and accurate reflection of patient's current condition. Confidential - Redisclosure prohibited without a patient's written consent.
== END 2017-01-19 11:05 | disposition other institution (70) | DRG 774 ==
LOC: 2NENU 19:37 → EMEROO 19:37 → 2NENU 23:10 → SUATTDRO 01-14 00:43
PROVIDERS: ADMIT Internal Medicine; ATTEND Internal Medicine